=== PATIENT | male | born 1970 | race Caucasian/White ===

== ENCOUNTER 2022-01-28 10:48 | Outpatient (REF) | payer OTHER, SELFPAY ==
--- NOTE | ~2022-01-28 | XR_ITS ---
EXAMINATION: XR CHEST CLINICAL INFORMATION: Shortness of breath. COMPARISON: None TECHNIQUE: 2 views of the chest were obtained. FINDINGS: No significant abnormality is noted involving the heart, lungs, mediastinum, bony thorax or soft tissues. XR/XR chest 2V IMPRESSION: Unremarkable examination.
[2022-01-28 13:52] LABS: MANUAL DIFF FLAG NO
[2022-01-28 14:03] LABS: Basophils Percent Auto 0.4 % (0-2); Eosinophils Absolute Auto 0.1 X10*3/uL (0.0-0.4); Eosinophils Percent Auto 1.6 % (0-4); Hematocrit 46.4 % (42.0-52.0); Hemoglobin 15.8 g/dl (14.0-18.0); Imm Gran Abs Auto 0.03 X10*3/uL (0.00-0.03); Imm Gran Pct Auto 0.4 % (0.0-0.4); Lymphocytes Absolute Auto 1.9 X10*3/uL (1.2-4.9); Lymphocytes Percent Auto 27.5 % (20-40); Mean Corpuscular HGB Conc 34.1 g/dl (31.0-36.0); Mean Corpuscular Hemoglobin 32.1 pg (27.0-33.0); Mean Corpuscular Volume 94.3 fL (80.0-98.0); Mean Platelet Volume 10.1 fL (9.4-12.4); Monocytes Absolute Auto 0.6 X10*3/uL (0.1-1.2); Monocytes Percent Auto 8.2 % (2-11); Neutrophils Absolute Auto 4.3 x10*3/uL (2.0-8.3); Neutrophils Percent Auto 61.9 % (45-73); Platelet Count 219 X10*3/uL (160-400); Red Blood Count 4.92 X10*6/uL (4.60-5.80); Red Cell Distribution Width 12.7 % (11.0-16.0)
[2022-01-28 14:22] LABS: Alanine Aminotransferase 21 U/L (0-40); Albumin Level 4.5 g/dL (3.5-5.0); Alkaline Phosphatase 52 U/L (39-117); Anion Gap 15 (12-20); Aspartate Amino Transferase 20 U/L (5-37); Bilirubin Total 0.6 mg/dL (0.0-1.0); Blood Urea Nitrogen 17 mg/dL (9-16); Calcium 9.6 mg/dL (8.4-10.2); Carbon Dioxide 28 mmol/L (22-29); Chloride 103 mmol/L (96-108); Cholesterol 233 mg/dL; Estimated Glomerular Filt Rate > 60; Glucose Fasting 101 mg/dL (60-99); HDL Cholesterol 59 mg/dL; LDL Cholesterol Calculated 155 mg/dl; Potassium 4.7 mmol/L (3.3-5.1); Sodium 141 mmol/L (135-145); Total Protein 7.2 g/dL (6.5-8.0); Triglycerides 97 mg/dL
[2022-01-28 14:28] LABS: Appearance Urine Clear; Color Urine Yellow; Glucose Urine UA Negative (Negative); Leukocyte Esterase Urine Negative (Negative); Nitrite Urine Negative (Negative); PH 8.5 (5.0-9.0); Urine Blood Negative (Negative); Urine Ketones Negative (Negative); Urine Protein Negative (Neg-Trace)
[2022-01-28 14:32] LABS: Bacteria Urine None Seen (None Seen); Hyaline Casts Urine 0-2 /LPF (0-2); RBC Urine 0-2 /HPF (0-2); Squamous Epithelial Cell Urine 0-2 /HPF (0-2); WBC Urine 0-5 /HPF (0-5)
[2022-01-28 14:43] LABS: PSA,Total (Free>4and<10) 1.17 ng/mL (0.00-4.00)
== END 2022-01-28 10:49 | disposition home or self-care (01) ==
LOC: HO.HMGCX 10:48
PROVIDERS: PCP Internal Medicine; Visit Provider Internal Medicine
DX: Z12.5 Encounter for screening for malignant neoplasm of prostate (principal); Z00.00 Encounter for general adult medical examination without abnormal findings; K62.5 Hemorrhage of anus and rectum; K64.9 Unspecified hemorrhoids
CPT/HCPCS: 36415; 71046; 80053; 80061; 81001; 84153; 85025

== ENCOUNTER → 2022-02-18 09:30 | Outpatient (REF) | payer OTHER, SELFPAY ==
--- NOTE | 2022-02-18 09:33 | CA_ITS ---
Transthoracic Echocardiogram Patient (Last, First, Middle): Tristin Zhou, Gender: Male Date of : 1970 Age: 51 Procedure Date: 02/18/2022 Procedure Type: Transthoracic Echocardiogram Location: OP Height: 167. cm Weight: 84. 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 The calculated ejection fraction is 57% by biplane method. - No obvious valvular pathology seen on this study. Findings Left Ventricle Normal left ventricular cavity size. There is normal left ventricular wall thickness. The left ventricular systolic function is normal. The calculated ejection fraction is 57% by biplane method. There is no evidence of regional wall motion abnormalities. LV peak GLS -16.2%, mildly diminished. Right Ventricle Normal right ventricular cavity size and systolic function. Atria Both atria are normal in size. Aortic Valve There is a normal trileaflet aortic valve. There is no aortic valve stenosis. There is no aortic valve regurgitation. Mitral Valve The mitral valve appears normal. There is trace mitral valve regurgitation. There is no mitral valve stenosis. Pulmonic Valve The pulmonic valve is likely normal. Tricuspid Valve Normal tricuspid valve structure. There is trace tricuspid valve regurgitation. There is no evidence of pulmonary hypertension. Great Vessels The aortic annulus, sinuses of valsalva, and asc aorta are normal in size. Venous The inferior vena cava is normal in size and collapses less than 50% with inspiration. Pericardium/Pleural There is no evidence of pericardial effusion. Prior Study Comparison No prior study available for comparison. Recommendations, Care & Conclusions No obvious valvular pathology seen on this study. Measurements 2D Linear Measurements IVSd: 1.03 0.6-0.9/0.6-1.0 cm LVIDd: 5.46 3.9-5.3/4.2-5.9 cm LVIDd Index: 2.83 2.4-3.2/2.2-3.1 cm/m2 LVIDs: 3.86 2.0-3.6 cm LVPWd: 0.88 0.7-1.1 cm LA Diam: 3.70 2.7-3.8/3.0-4.0 cm LAIDs Index: 1.92 1.5-2.3 cm/m2 LV Mass: 246.88 67-162/88-224 g LV Mass Index: 127.92 43-95/49-115 g/m2 LVOT Diam: 2.20 3.0+(-)1.3 cm 2D Systolic Function EF 4C: 56.80 >55% EF 2C: 61.60 >55% EF BiP: 57.30 >55% Mitral Valve MV Pk E: 0.95 MV PK A: 1.02 MV Decel Time: 147.00 E/A: 0.90 E'Lateral: 7.18 E'Medial: 8.81 E/E' Med: 10.70 E/E' Lat: 13.20 PHT: 43.00 MVA PHT: 5.12 Decel [place]: 6.43 Aortic Valve AoV Pk Aaron: 1.33 AoV Mn [place]: 0.96 AoV VTI: 0.28 AoV Pk Grad: 7.00 Aov Mn Grad: 4.00 ARIEL Cont.VTI: 2.77 LVOT LVOT Pk Aaron: 0.92 LVOT Mn Aaron: 0.66 LVOT VTI: 0.21 LVOT Pk Grad: 3.00 LVOT Mn Grad: 2.00 LVOT Diam: 2.20 LVOT Area: 3.80 Diastolic Function MV Pk E: 0.95 MV Pk A: 1.02 E/A: 0.90 E'Medial: 8.81 E/E' Med: 10.70 E' Laterial: 7.18 E/E' Lat: 13.20 Right Ventricle TAPSE (mm): 19.10 TVS' Aaron: 11.30 Tricuspid Valve TR Pk Aaron: 2.34 TR Pk Grad: 22.00 RA Press: 8.00 RVSP: 25.00 Great Vessels Aorta Sinus of Valsalva: 2.90 2.0-3.5 cm Ao Asc: 3.30 2.1-3.4 cm Pulmonary Veins Pulm Vein S/D 1.30 Pulmonary Valve PV Pk Aaron: 0.90 Peak PV Grad: 3.00 Updated in Other Vendor System with Status of Final Jeffrey Hull MD electronically signed on 02/20/2022 11:22:27 AM with status of Final
== END ==
LOC: HO.CARD 09:30
PROVIDERS: Visit Provider Internal Medicine
DX: I51.7 Cardiomegaly (principal)
CPT/HCPCS: 93306; 93356

== ENCOUNTER 2022-02-25 15:59 | Outpatient (REF) | payer OTHER, SELFPAY ==
[2022-02-26 12:20] LABS: H Pylori Breath Test Negative (Negative)
== END 2022-02-25 16:00 | disposition home or self-care (01) ==
LOC: HO.LNP 15:59
PROVIDERS: Visit Provider Nurse Practitioner Family
DX: K64.9 Unspecified hemorrhoids (principal); K21.9 Gastro-esophageal reflux disease without esophagitis; K62.5 Hemorrhage of anus and rectum
CPT/HCPCS: 83013; 99202

== ENCOUNTER 2022-05-10 07:45 | Outpatient (REF) | payer MEDICAID, SELFPAY ==
[2022-05-10 11:48] LABS: Alanine Aminotransferase 17 U/L (0-40); Albumin Level 4.3 g/dL (3.5-5.0); Alkaline Phosphatase 50 U/L (39-117); Anion Gap 11 (12-20); Aspartate Amino Transferase 18 U/L (5-37); Bilirubin Total 0.3 mg/dL (0.0-1.0); Blood Urea Nitrogen 20 mg/dL (9-16); Calcium 8.9 mg/dL (8.4-10.2); Carbon Dioxide 27 mmol/L (22-29); Chloride 107 mmol/L (96-108); Cholesterol 229 mg/dL; Estimated Glomerular Filt Rate > 60; Glucose Fasting 111 mg/dL (60-99); HDL Cholesterol 61 mg/dL; LDL Cholesterol Calculated 152 mg/dl; Potassium 4.1 mmol/L (3.3-5.1); Sodium 141 mmol/L (135-145); Total Protein 6.9 g/dL (6.5-8.0); Triglycerides 82 mg/dL
== END 2022-05-10 07:46 | disposition home or self-care (01) ==
LOC: HO.HMGCLDS 07:45
PROVIDERS: PCP Internal Medicine; Visit Provider Internal Medicine
DX: I10 Essential (primary) hypertension (principal); E78.5 Hyperlipidemia, unspecified
CPT/HCPCS: 36415; 80053; 80061

== ENCOUNTER → 2022-06-01 15:48 | Outpatient (REF) | payer OTHER, SELFPAY | LOC: HO.SL 15:48 | PROVIDERS: PCP Internal Medicine; Visit Provider Internal Medicine | DX: G47.33 Obstructive sleep apnea (adult) (pediatric) (principal) | CPT/HCPCS: 95806 ==

== ENCOUNTER 2022-06-20 10:19 | Day surgery (SDC) | payer OTHER, SELFPAY ==
[2022-06-20 10:43] VITALS: BMI 30.7
[2022-06-20] MEDS: Lactated Ringers 1,000 ML 50 ML IVCONT (10:47)
[2022-06-20 10:56] VITALS: BP 133/92; PULSE 84; RESP 18; TEMP 36.6; O2SAT 98
--- NOTE | 2022-06-20 11:00 | MHC.SHP ---
Pre-Procedural Eval Section A Date of Service: 06/20/22 Section B Chief Complaint: GERD, screening Details of Present Illness: 52y.o M with PMH of HTN who is here for EGD/colo. Does report intermittent rectal bleeding which he thinks is from hemorrhoids Relevant Family History (Specify if Yes): No Relevant Social History: None Present Medications: see Short Stay Collaborative assessment Medical History: Significant History (as above ) History of Previous Operations: Relevant previous surgery/procedure and date(s) (Bone transplant status History of hernia surgery) Allergies: Allergies Allergy/AdvReac Type Severity Reaction Status Date / Time No Known Allergies Allergy Verified 06/16/22 08:57 Review of Systems Review of Systems Comment: 10 point ROS negative except as above Exam Exam Comment: Gen appear: No acute distress, well nourished HEENT: no icterus Chest: No overt resp distress Abd: soft, nontender, nondistended Psych: Stable affect, answering questions appropriately Neuro: A/Ox3 noted to move all extremities spontaneously Ext: no peripheral edema Plan Diagnosis/Plan: Unchanged I have reviewed the history and physical and performed a pertinent physical examination on my patient. No changes have occurred unless specified. Time Spent With Patient Time: Total time managing care of this patient today ____ minutes.
--- NOTE | 2022-06-20 11:14 | P.OP_ITS ---
Operative Note Operative Note Date of Service: 06/20/22 Narrative: Procedure:?Esophagogastroduodenoscopy and Colonoscopy Indication:GERD, screening Endoscopist:?Jazz Noonan MD Anesthesia Provider:?Dr Jessica Harrison Anesthesia type:?MAC Instrument:?Olympus GIF-H190, PCF-H190L EGD Procedure:?? The procedure, indications, preparation and potential complications were reviewed with the patient, who indicated understanding and gave written informed consent to proceed. A physical exam was performed. The endoscope was introduced through the mouth, and advanced to the duodenum. The mucosa was carefully examined on slow withdrawal of the endoscope. The patient tolerated the procedure well. There were no immediate complications.? ? EGD Findings:? * Esophagus: Normal mucosa noted in the entire esophagus. The Z line was at?40 cm and noted to be irregular with the columnar mucosa extending up to 39 cm. Cold forceps biopsies were taken to rule out Steele's esophagus. A small patch of heterotopic gastric mucosa was noted in the proximal esophagus. * Stomach: Patchy erythema and erosions were noted in the antrum. Random cold forceps biopsies were obtained to r/o H pylori. * Duodenum: Normal duodenum to the extent visualised. Cold forceps biopies were obtained from duodenal bulb and second portion of the duodenum to rule out celiac sprue. Colonoscopy Procedure:? The patient was then turned for the colonoscopy. A digital rectal exam was performed which was abnormal due to findings of external hemorrhoids. The colonoscope was then inserted through the anus and advanced through the colon to the cecum at 80 cm. The appendiceal orifice was identified.? Mucosa was examined under high definition white light as the instrument was slowly withdrawn in a retrograde panoramic fashion. Retroflexion could not be performed in ascending colon and rectum. The procedure was not difficult. There were no immediate obvious complications. The quality of the prep was BBPS: 2+2+3 = inadequate Withdrawal time 55 minutes. Limitations: No limitations Colonoscopy Findings: Mucosa: Normal mucosa in whole colon to the extent visualised Protruding lesions: * A flat polyp of size 2.5 cm spanning across the fold was noted in transverse colon at 60 cm. This was raised with 2 cc of epinephrine followed by 3 cc of Eleview. Due to difficult positioning of scope, the colonoscope was withdrawn and fitted with distal attachment cap. The polyp was then completely removed in one piece using hot snare polypectomy and retrieved. An endoclip was placed prophylactically at the polypectomy site. The site was flanked with 2 cc of Endomark 5-7 cm proximal and distal to the polyp site. * A sessile polyp of size 4 mm was noted in sigmoid colon. Cold snare polypectomy was performed. The polyp was completely removed and retrieved. * Large internal and external hemorrhoids without stigmata of recent bleeding Excavated lesions: * Small and medium mouthed diverticula in left side of the colon. Impression:? * Iregular Z line (biopsy) * Inlet patch * Gastritis (biopsy) * Normal duodenum (biopsy) * Large 2.5 cm polyp in transverse colon (EMR with epi/Eleview and hot snare) (endoclip) (tattoo) * Sigmoid colon polyp (cold snare polypectomy) * Diverticulosis * Internal hemorrhoids Recommendations:?? * Follow path results. * Repeat colonoscopy in 6 months if it is an advanced polyp. * If biopsies confirm BE, repeat EGD will depend on presence and extent of dysplasia.
[2022-06-20 12:50] VITALS: BP 100/58; PULSE 90; RESP 12; TEMP 36.6; O2SAT 96
[2022-06-20 13:05] VITALS: BP 130/90; PULSE 87; RESP 18; TEMP 36.1; O2SAT 99
== END 2022-06-20 13:29 | disposition home or self-care (01) ==
PROVIDERS: PCP Internal Medicine; Visit Provider Internal Medicine
PROC: (CPT 45385; principal; 2022-06-20 12:10)
DX: Z12.11 Encounter for screening for malignant neoplasm of colon (principal); D12.3 Benign neoplasm of transverse colon; K63.5 Polyp of colon; K57.30 Diverticulosis of large intestine without perforation or abscess without bleeding; K64.8 Other hemorrhoids; K64.4 Residual hemorrhoidal skin tags; K21.9 Gastro-esophageal reflux disease without esophagitis; K29.50 Unspecified chronic gastritis without bleeding; K22.89 Other specified disease of esophagus; Q39.8 Other congenital malformations of esophagus; I10 Essential (primary) hypertension; Z79.899 Other long term (current) drug therapy; Z94.6 Bone transplant status; F17.210 Nicotine dependence, cigarettes, uncomplicated
CPT/HCPCS: 45385; 45381; 43239; 88305; 88342; J0171

== ENCOUNTER 2022-06-21 15:02 | Outpatient (REF) | payer OTHER, SELFPAY ==
[2022-06-21 15:20] LABS: Hematocrit 33.4 % (42.0-52.0); Hemoglobin 11.3 g/dl (14.0-18.0); Mean Corpuscular HGB Conc 33.8 g/dl (31.0-36.0); Mean Corpuscular Hemoglobin 31.2 pg (27.0-33.0); Mean Corpuscular Volume 92.3 fL (80.0-98.0); Mean Platelet Volume 9.5 fL (9.4-12.4); Platelet Count 199 X10*3/uL (160-400); Red Blood Count 3.62 X10*6/uL (4.60-5.80)
[2022-06-21 15:59] LABS: Alanine Aminotransferase 27 U/L (0-40); Albumin Level 3.8 g/dL (3.5-5.0); Alkaline Phosphatase 49 U/L (39-117); Anion Gap 12 (12-20); Aspartate Amino Transferase 18 U/L (5-37); Bilirubin Total 0.2 mg/dL (0.0-1.0); Blood Urea Nitrogen 19 mg/dL (9-16); Calcium 8.6 mg/dL (8.4-10.2); Carbon Dioxide 27 mmol/L (22-29); Chloride 104 mmol/L (96-108); Cholesterol 163 mg/dL; Estimated Average Glucose 100 mg/dL; Estimated Glomerular Filt Rate > 60; Glucose Fasting 191 mg/dL (60-99); HDL Cholesterol 34 mg/dL; Hemoglobin A1c % 5.1 %; LDL Cholesterol Calculated 102 mg/dl; Potassium 4.1 mmol/L (3.3-5.1); Sodium 139 mmol/L (135-145); Total Protein 5.6 g/dL (6.5-8.0); Triglycerides 139 mg/dL
== END 2022-06-21 15:03 | disposition home or self-care (01) ==
LOC: HO.LAB 15:02
PROVIDERS: PCP Internal Medicine; Visit Provider Internal Medicine
DX: E78.5 Hyperlipidemia, unspecified (principal); R73.9 Hyperglycemia, unspecified; K62.5 Hemorrhage of anus and rectum; I10 Essential (primary) hypertension
CPT/HCPCS: 36415; 80053; 80061; 83036; 85027

== ENCOUNTER 2022-07-04 11:53 | Outpatient (REF) | payer OTHER, SELFPAY ==
[2022-07-04 14:30] LABS: Hematocrit 33.7 % (42.0-52.0); Hemoglobin 11.4 g/dl (14.0-18.0); Mean Corpuscular HGB Conc 33.8 g/dl (31.0-36.0); Mean Corpuscular Hemoglobin 32.1 pg (27.0-33.0); Mean Corpuscular Volume 94.9 fL (80.0-98.0); Platelet Count 279 X10*3/uL (160-400); Red Blood Count 3.55 X10*6/uL (4.60-5.80); Red Cell Distribution Width 12.7 % (11.0-16.0)
== END 2022-07-04 11:54 | disposition home or self-care (01) ==
LOC: HO.XRAY 11:53
PROVIDERS: PCP Internal Medicine; Referring Provider Internal Medicine; Visit Provider Nurse Practitioner Family
DX: K21.9 Gastro-esophageal reflux disease without esophagitis (principal); K62.5 Hemorrhage of anus and rectum; K63.5 Polyp of colon; Z98.890 Other specified postprocedural states
CPT/HCPCS: 36415; 85027; 99212

== ENCOUNTER 2022-08-16 08:01 | Outpatient (REF) | payer OTHER, SELFPAY ==
[2022-08-16 12:09] LABS: Anion Gap 8 (12-20); Blood Urea Nitrogen 21 mg/dL (9-16); Carbon Dioxide 29 mmol/L (22-29); Chloride 107 mmol/L (96-108); Estimated Glomerular Filt Rate > 60; Glucose Fasting 114 mg/dL (60-99); Potassium 4.4 mmol/L (3.3-5.1); Sodium 140 mmol/L (135-145)
== END 2022-08-16 08:02 | disposition home or self-care (01) ==
LOC: HO.HMGCLDS 08:01
PROVIDERS: PCP Internal Medicine; Visit Provider Internal Medicine
DX: R73.9 Hyperglycemia, unspecified (principal)
CPT/HCPCS: 36415; 80048

== ENCOUNTER → 2022-09-20 16:05 | Outpatient (BNVA) | payer OTHER, SELFPAY | PROVIDERS: PCP Internal Medicine; Visit Provider Nurse Practitioner Family | DX: Z12.11 Encounter for screening for malignant neoplasm of colon (principal); K64.9 Unspecified hemorrhoids; K59.00 Constipation, unspecified | CPT/HCPCS: 99212 ==

== ENCOUNTER 2023-02-02 08:02 | Outpatient (AMB) | payer OTHER, SELFPAY ==
[2023-02-02 08:05] VITALS: BP 120/74; PULSE 97; O2SAT 98; BMI 31.8
--- NOTE | 2023-02-02 08:05 | A.OFFPC_ITS ---
Vital Signs 02/02/23 08:05 Height 5 ft 6 in Weight 197 lb BMI 31.8 BP 120/74 Blood Pressure Location Lt brachial Position Sitting Pulse 97 Pulse Source Pulse Oximeter Pulse Oximetry (%) 98 Oxygen Delivery Method Room Air Intake Visit Reasons: PE Intake Note: Pt is here today for PE. Allergies No Known Allergies Allergy (Verified 02/02/23 08:07) Medication List - Last Reconciled 02/02/23 by Virginia Soares MD amlodipine 5 mg PO DAILY bisacodyl (Dulcolax (bisacodyl)) 10 mg (2 x 5 mg) PO ONCE 1 day blood sugar diagnostic (DaojiaTouch Ultra Test strips) qd blood-glucose meter (DaojiaTouch Ultra2 Meter kit) qd docusate sodium 100 mg PO BEDTIME hydrocortisone 2.5% (Proctosol HC) [address] BID-QID PRN nicotine 1 patch transdermal DAILY olmesartan-hydrochlorothiazide 40-12.5 mg 1 tab PO DAILY polyethylene glycol 3350 (Miralax) 238 grams PO ONCE pravastatin 20 mg PO BEDTIME triamcinolone acetonide 0.1% 1 appl topical BID Tobacco use date assessed: 02/02/23 Dental Screening Dental Screen Date: 02/02/23 Did you have a dental visit in the last 12 months?: Yes Did you have a dental problem in the last 6 months where you did not have access to dental care?: No Was dental information given to patient?: Patient has dentist HPI PE HPI Details Patient presents for physical. He will have a colonoscopy next month [facility] Surgical History History of esophagogastroduodenoscopy (EGD) Hx of colonoscopy History of hernia surgery Family History Father No problems noted. 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 Rik Floyd, Akosua Del Angel, Jonathan Walden and colleagues, with an educational rei from [employer]. Review of Systems Const All systems reviewed & are unremarkable except as noted in HPI and below Reports no additional complaints Eyes Reports no additional complaints ENT Reports no additional complaints Card Reports no additional complaints Resp Reports no additional complaints GI Reports no additional complaints Reports no additional complaints Musc Reports no additional complaints Physical exam (Primary Care) Vital Signs: Last Vital Signs Pulse 97 02/02/23 08:05 BP 120/74 02/02/23 08:05 Pulse Ox 98 02/02/23 08:05 Oxygen Delivery Method Room Air 02/02/23 08:05 BMI result Body Mass Index 31.8 Tobacco/Smoking Status: Tobacco use Status Tobacco use date assessed 02/02/23 02/02/23 08:10 Patient Tobacco Use Status Former Tobacco user 02/02/23 08:10 Tobacco use type Cigarette 02/02/23 08:10 e-Cigarette/Vaping Use Never Used 02/02/23 08:10 Thrive Assessment: Date of Thrive Assessment Date Thrive assessed 05/11/22 02/02/23 08:10 Const General: no acute distress HENMT Head: Yes normal to inspection Ears: hearing grossly normal bilaterally General nose exam: Normal external nose present Mouth: Normal oral and palatal mucosa present Throat: Yes posterior oropharynx normal Eyes General: appearance normal, both eyes and all related structures Resp Effort & Inspection: normal respiratory effort Auscultation: clear to auscultation bilaterally Cardio Rhythm: regular rhythm Heart sounds: S1 normal heart sound present and S2 normal heart sound present GI Inspection: Yes normal to inspection Palpation (GI): Soft to palpation Percussion: Yes normal to percussion Auscultation: normal bowel sounds Assessment and Plan Assessment & Plan (1) Hyperglycemia: Code(s): R73.9 - Hyperglycemia, unspecified Plan: A1c is 5.8. ADA diet regular physical activity weight loss discussed with the patient. He will return for fasting labs next week and will follow-up in 6 months with a fasting labs before (2) Hyperlipidemia: Code(s): E78.5 - Hyperlipidemia, unspecified Plan: Continue statin (3) Tobacco dependence: Comment: 1/2 PPD X 20 yrs Code(s): F17.200 - Nicotine dependence, unspecified, uncomplicated Plan: Tobacco quitting discussed with the patient (4) HTN (hypertension): Code(s): I10 - Essential (primary) hypertension Plan: Continue current medications, (5) Annual physical exam: Code(s): Z00.00 - Encounter for general adult medical examination without abnormal findings Plan: Well-balanced diet regular physical activity discussed with the patient. he will have a colonoscopy next month Medications: Refilled olmesartan-hydrochlorothiazide 40-12.5 mg 1 tab PO DAILY 90 tabs 3RF nicotine 1 patch transdermal DAILY 28 ea 3RF amlodipine 5 mg PO DAILY 90 tabs 3RF pravastatin 20 mg PO BEDTIME 90 tabs 3RF Coding Level of Care Code Est Pt Prev Care 40-64y(81281) Diagnoses Hyperglycemia R73.9 Hyperlipidemia E78.5 Tobacco dependence F17.200 HTN (hypertension) I10 Annual physical exam Z00.00
== END 2023-02-02 08:32 | disposition home or self-care (01) ==
PROVIDERS: Visit Provider Internal Medicine
DX: R73.9 Hyperglycemia, unspecified (principal); E78.5 Hyperlipidemia, unspecified; F17.200 Nicotine dependence, unspecified, uncomplicated; I10 Essential (primary) hypertension; Z00.00 Encounter for general adult medical examination without abnormal findings
CPT/HCPCS: 99396

== ENCOUNTER 2023-08-02 07:42 | Outpatient (REF) | payer OTHER, SELFPAY ==
[2023-08-02 10:17] LABS: MANUAL DIFF FLAG NO
[2023-08-02 10:21] LABS: Appearance Urine Hazy; Color Urine Yellow; Glucose Urine UA Negative (Negative); Leukocyte Esterase Urine Negative (Negative); Nitrite Urine Negative (Negative); PH 5.5 (5.0-9.0); Specific Gravity - Urine >= 1.030 (1.005-1.025); Urine Blood Negative (Negative); Urine Ketones Negative (Negative); Urine Protein Negative (Neg-Trace)
[2023-08-02 10:24] LABS: Basophils Percent Auto 0.6 % (0-2); Eosinophils Absolute Auto 0.2 X10*3/uL (0.0-0.4); Eosinophils Percent Auto 3.8 % (0-4); Hematocrit 41.6 % (42.0-52.0); Hemoglobin 14.2 g/dl (14.0-18.0); Imm Gran Abs Auto 0.02 X10*3/uL (0.00-0.03); Imm Gran Pct Auto 0.3 % (0.0-0.4); Lymphocytes Absolute Auto 1.8 X10*3/uL (1.2-4.9); Lymphocytes Percent Auto 28.5 % (20-40); Mean Corpuscular HGB Conc 34.1 g/dl (31.0-36.0); Mean Corpuscular Hemoglobin 32.3 pg (27.0-33.0); Mean Corpuscular Volume 94.5 fL (80.0-98.0); Monocytes Absolute Auto 0.5 X10*3/uL (0.1-1.2); Monocytes Percent Auto 8.5 % (2-11); Neutrophils Absolute Auto 3.7 x10*3/uL (2.0-8.3); Neutrophils Percent Auto 58.3 % (45-73); Platelet Count 226 X10*3/uL (160-400); Red Cell Distribution Width 12.7 % (11.0-16.0); White Blood Count 6.4 X10*3/uL (4.8-10.8)
[2023-08-02 10:49] LABS: Bacteria Urine None Seen (None Seen); Hyaline Casts Urine 0-2 /LPF (0-2); RBC Urine 0-2 /HPF (0-2); Squamous Epithelial Cell Urine 0-2 /HPF (0-2); WBC Urine 0-5 /HPF (0-5)
[2023-08-02 11:00] LABS: Estimated Average Glucose 105 mg/dL; Hemoglobin A1c % 5.3 % (<6.0)
[2023-08-02 11:11] LABS: PSA,Total (Free>4and<10) 0.94 ng/mL (0.00-4.00)
[2023-08-02 11:15] LABS: Alanine Aminotransferase 35 U/L (0-40); Albumin Level 4.5 g/dL (3.5-5.0); Alkaline Phosphatase 58 U/L (39-117); Anion Gap 10 (12-20); Aspartate Amino Transferase 31 U/L (5-37); Bilirubin Total 0.2 mg/dL (0.0-1.0); Blood Urea Nitrogen 20 mg/dL (9-16); Calcium 9.2 mg/dL (8.4-10.2); Carbon Dioxide 27 mmol/L (22-29); Chloride 107 mmol/L (96-108); Cholesterol 184 mg/dL (<200); Estimated Glomerular Filt Rate > 60; Glucose Fasting 115 mg/dL (60-99); HDL Cholesterol 62 mg/dL (>40); LDL Cholesterol Calculated 109 mg/dL (<100); Potassium 4.2 mmol/L (3.3-5.1); Sodium 140 mmol/L (135-145); Total Protein 7.3 g/dL (6.5-8.0); Triglycerides 65 mg/dL (<150)
== END 2023-08-02 07:43 | disposition home or self-care (01) ==
LOC: HO.HMGCLDS 07:42
PROVIDERS: PCP Internal Medicine; Visit Provider Internal Medicine
DX: R73.9 Hyperglycemia, unspecified (principal); E78.5 Hyperlipidemia, unspecified; I10 Essential (primary) hypertension
CPT/HCPCS: 36415; 80053; 80061; 81001; 83036; 84153; 85025

== ENCOUNTER 2023-08-03 10:21 | Outpatient (AMB) | payer OTHER, SELFPAY ==
[2023-08-03 10:24] VITALS: BP 118/72; PULSE 82; O2SAT 95; BMI 31.1
--- NOTE | 2023-08-03 10:24 | MHC.PC.OV ---
Vital Signs 08/03/23 10:24 Height 5 ft 6 in Weight 193 lb BMI 31.1 BP 118/72 Blood Pressure Location Rt brachial Position Sitting Pulse 82 Pulse Source Pulse Oximeter Pulse Oximetry (%) 95 Oxygen Delivery Method Room Air Intake Visit Reasons: 6 month follow up Intake Note: Pt is here today for 6 months follow up visit. Allergies No Known Allergies Allergy (Verified 08/03/23 10:26) Medication List - Last Reconciled 08/03/23 by Virginia Soares MD amlodipine 5 mg PO DAILY bisacodyl (Dulcolax (bisacodyl)) 10 mg (2 x 5 mg) PO ONCE 1 day blood sugar diagnostic (Phasor SolutionsTouch Ultra Test strips) qd blood-glucose meter (Phasor SolutionsTouch Ultra2 Meter kit) qd docusate sodium 100 mg PO BEDTIME hydrocortisone 2.5% (Proctosol HC) 1 appl SD BID-QID PRN nicotine 1 patch transdermal DAILY olmesartan-hydrochlorothiazide 40-12.5 mg 1 tab PO DAILY polyethylene glycol 3350 (Miralax) 238 grams PO ONCE pravastatin 20 mg PO BEDTIME triamcinolone acetonide 0.1% 1 appl topical BID Tobacco use date assessed: 08/03/23 Dental Screening Dental Screen Date: 08/03/23 Did you have a dental visit in the last 12 months?: Yes Did you have a dental problem in the last 6 months where you did not have access to dental care?: No Was dental information given to patient?: Patient has dentist HPI 6 month follow up HPI Details Patient presents for the follow-up of hypertension hyperlipidemia, controlled on current medications. [facility] Surgical History (Updated 08/03/23 @ 11:14 by Virginia Soarse MD) History of esophagogastroduodenoscopy (EGD) Hx of colonoscopy History of hernia surgery Family History Father No problems noted. 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 1. Little interest or pleasure in doing things: not at all 2. Feeling down, depressed, or hopeless: not at all 3. Trouble falling or staying asleep, or sleeping too much: not at all 4. Feeling tired or having little energy: not at all 5. Poor appetite or overeating: not at all 6. Feeling bad about yourself - or that you are a failure or have let yourself or your family down: not at all 7. Trouble concentrating on things, such as reading the newspaper or watching television: not at all 8. Moving or speaking so slowly that other people could have noticed. Or the opposite - being so fidgety or restless that you have been moving around a lot more than usual: not at all 9. Thoughts that you would be better off or of hurting yourself in some way: not at all Total score: 0 Depression Screening Interpretation: Negative Depression Screening Done: Yes Source: Developed by Drs. Rik Floyd, Akosua Del Angel, Jonathan Walden and colleagues, with an educational rei from [employer]. Thrive Questionnaire Date Thrive assessed: 08/03/23 I am a: Patient What is your living situation today?: I have a steady place to live Within the past 12 months, did the food you bought not last and you didn't have the money to get more?: Never true Within the past 12 months, did you worry whether your food would run out before you got money to buy more?: Never true Do you have trouble paying for medicines?: No Do you have trouble getting transportation to medical appointments?: No Do you have trouble paying your heating and electricity bill?: No Do you have trouble taking care of your child, family member or friend?: No Do you have trouble with day-to-day activities such as bathing, preparing meals, shopping, managing finances, etc.?: No Are you currently unemployed and looking for a job?: No Are you interested in more education?: No Please select the resources that you would like help with: None Currently or been in a relationship where the following occur: no concerns reported THRIVE Score: 0 AUDIT C Alcohol Use Questionnaire (AUDIT-C) 1. How often do you have a drink containing alcohol?: Monthly or less 2. How many drinks containing alcohol do you have on a typical day when you are drinking?: 1 or 2 3. How often do you have six or more drinks on one occasion?: Never Total Score: 1 ANTONIO-7 AMB Questionnaire ANTONIO-7 Date ANTONIO - 7 assessed: 08/03/23 Feeling nervous, anxious, or on edge: 0 = Not at all Not being able to stop or control worryin = Not at all Worrying too much about different things: 0 = Not at all Trouble relaxin = Not at all Being so restless that it is hard to sit still: 0 = Not at all Becoming easily annoyed or irritable: 0 = Not at all Feeling afraid as if something awful might happen: 0 = Not at all Total ANTONIO-7 score (0-4 normal; 5-9 mild; 10-14 moderate; 15-21 severe): 0 Source: Developed by Drs. Rik Floyd, Akosua Del Angel, Jonathan Walden and colleagues, with an educational rei from [employer]. Review of Systems Const All systems reviewed & are unremarkable except as noted in HPI and below Reports no additional complaints Eyes Reports no additional complaints ENT Reports no additional complaints Card Reports no additional complaints Resp Reports no additional complaints GI Reports no additional complaints Reports no additional complaints Physical exam (Primary Care) Vital Signs: Last Vital Signs Pulse 82 08/03/23 10:24 BP 118/72 08/03/23 10:24 Pulse Ox 95 08/03/23 10:24 Oxygen Delivery Method Room Air 08/03/23 10:24 BMI result Body Mass Index 31.1 Tobacco/Smoking Status: Tobacco use Status Tobacco use date assessed 08/03/23 08/03/23 10:26 Patient Tobacco Use Status Former Tobacco user 08/03/23 10:26 Tobacco use type Cigarette 08/03/23 10:26 e-Cigarette/Vaping Use Never Used 08/03/23 10:26 PHQ-9: PHQ-9 Score PHQ-9: Total score 0 08/03/23 10:32 Depression Screening Interpretation: Negative Thrive Assessment: Date of Thrive Assessment Date Thrive assessed 08/03/23 08/03/23 10:32 Currently or been in a relationship where the following occur: no concerns reported Const General: no acute distress HENMT Head: Yes normal to inspection Ears: hearing grossly normal bilaterally Eyes General: appearance normal, both eyes and all related structures Neck Neck: Yes supple Resp Effort & Inspection: normal respiratory effort Auscultation: clear to auscultation bilaterally Cardio Rhythm: regular rhythm Heart sounds: S1 normal heart sound present and S2 normal heart sound present Assessment and Plan Assessment & Plan (1) Hyperglycemia: Code(s): R73.9 - Hyperglycemia, unspecified Plan: A1c 5.3, continue ADA diet regular exercise and weight loss follow-up in 6 months for physical with a fasting labs before (2) Hyperlipidemia: Code(s): E78.5 - Hyperlipidemia, unspecified Plan: Continue statin and low-cholesterol diet (3) HTN (hypertension): Code(s): I10 - Essential (primary) hypertension Plan: Continue current medications (4) Hx of colonoscopy: Comment: 06.20.22 [facility] [place] , 2.5 cm polyp sessile serrated in transverse colon, repeat colonoscopy scheduled for 09/28 Code(s): Z98.890 - Other specified postprocedural states Plan: Patient is scheduled for repeat colonoscopy for large colon polyp in September Orders: Orders Comprehensive Nash. Panel Fast 6 Months E78.5 - Hyperlipidemia, unspecified, I10 - Essential (primary) hypertension, R73.9 - Hyperglycemia, unspecified Lipid Panel 6 Months E78.5 - Hyperlipidemia, unspecified, I10 - Essential (primary) hypertension, R73.9 - Hyperglycemia, unspecified UA w Microscopic 6 Months E78.5 - Hyperlipidemia, unspecified, I10 - Essential (primary) hypertension, R73.9 - Hyperglycemia, unspecified Hemoglobin A1c 6 Months E78.5 - Hyperlipidemia, unspecified, I10 - Essential (primary) hypertension, R73.9 - Hyperglycemia, unspecified Complete Blood Count Auto Diff 6 Months E78.5 - Hyperlipidemia, unspecified, I10 - Essential (primary) hypertension, R73.9 - Hyperglycemia, unspecified Medications: Refilled olmesartan-hydrochlorothiazide 40-12.5 mg 1 tab PO DAILY 90 tabs 3RF pravastatin 20 mg PO BEDTIME 90 tabs 3RF amlodipine 5 mg PO DAILY 90 tabs 3RF Coding Level of Care Code Est Pt Level 4 (51886) Diagnoses Hyperglycemia R73.9 Hyperlipidemia E78.5 HTN (hypertension) I10 Hx of colonoscopy Z98.890
== END 2023-08-03 11:17 | disposition home or self-care (01) ==
PROVIDERS: PCP Internal Medicine; Visit Provider Internal Medicine
DX: R73.9 Hyperglycemia, unspecified (principal); E78.5 Hyperlipidemia, unspecified; I10 Essential (primary) hypertension; Z98.890 Other specified postprocedural states; F17.210 Nicotine dependence, cigarettes, uncomplicated
CPT/HCPCS: 99214

== ENCOUNTER 2023-09-29 11:44 | Day surgery (SDC) | payer OTHER, SELFPAY ==
--- NOTE | 2023-09-27 14:45 | HO.ANESPROP2 ---
Documented by User: Brissa Gomez NP 09/27/23 14:47 HPI - Anesthesia Eval Consult details Narrative: 53yo M for Colonoscopy PMF Active Problems Active Problems: All Active Problems History of esophagogastroduodenoscopy (EGD) (Acute) Hx of colonoscopy (Acute) Pruritus (Acute) Hyperglycemia (Acute) Right knee pain (Acute) Hyperlipidemia (Acute) Tobacco dependence (Acute) HTN (hypertension) (Acute) SOB (shortness of breath) (Acute) Rectal bleeding (Acute) Hemorrhoids (Acute) Annual physical exam (Acute) Past Medical History Medical History HTN (hypertension) Tobacco dependence Hyperlipidemia Family History Family History Father No problems noted. 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 Tobacco Use Status: Current everyday Tobacco user Tobacco use type: Cigarette Cigarettes Per Day: 6 e-Cigarette/Vaping Use: Never Used Use of substances other than those prescribed or required for medical reasons: No Are you DNR?: No Advance Directives: No Advance Directives Information Provided: Yes Current occupational status: employed Cognitive needs: No Hearing needs: No Vision needs: Yes Meds Allergies Allergy/AdvReac Type Severity Reaction Status Date / Time No Known Allergies Allergy Verified 08/03/23 10:26 Assessment and Plan Assessment Anesthesia Assessment: Chart Reviewed Documented by User: Inna Parks MD 09/29/23 14:11 PMFSH Past Medical History Medical History HTN (hypertension) Tobacco dependence Hyperlipidemia Family History Family History Father No problems noted. 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 Tobacco Use Status: Current everyday Tobacco user Tobacco use type: Cigarette Cigarettes Per Day: 6 e-Cigarette/Vaping Use: Never Used Use of substances other than those prescribed or required for medical reasons: No Are you DNR?: No Advance Directives: No Advance Directives Information Provided: Yes Current occupational status: employed Cognitive needs: No Hearing needs: No Vision needs: Yes Meds Allergies Allergy/AdvReac Type Severity Reaction Status Date / Time No Known Allergies Allergy Verified 08/03/23 10:26 Exam Airway Mallampati Class: II (caps) TM Dist: >3cm Neck ROM: Full Heart: rrr Lungs: cta Assessment and Plan Assessment Anesthesia Assessment: Anesthesia Plan Discussed Final Anesthetic Review Family History of Problems with Anesthesia: No History of Problems with Anesthesia: No NPO: Yes ASA Class: II Final Preanesthetic Review: No Changes in Pt Med Stat, Meds/Allgs Chart Reviewed and Consent Obtained/Reviewed Patient Risk: Low Procedure Risk: Low Anesthetic Plan Anesthetic Plan: MAC: Disposition: Standard PACU
[2023-09-29 13:15] VITALS: BMI 30.7
[2023-09-29 14:16] VITALS: BP 138/69; PULSE 72; RESP 16; TEMP 36.9; O2SAT 98
--- NOTE | 2023-09-29 14:18 | P.CONAN_ITS ---
FORMERLY [facility] Active Problems Active Problems: All Active Problems History of esophagogastroduodenoscopy (EGD) (Acute) Hx of colonoscopy (Acute) Pruritus (Acute) Hyperglycemia (Acute) Right knee pain (Acute) SOB (shortness of breath) (Acute) Rectal bleeding (Acute) Hemorrhoids (Acute) Annual physical exam (Acute) Past Medical History Medical History HTN (hypertension) Tobacco dependence Hyperlipidemia Functional capacity: independent ambulation Family History Family History Father No problems noted. 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 Tobacco Use Status: Current everyday Tobacco user Tobacco use type: Cigarette Cigarettes Per Day: 6 e-Cigarette/Vaping Use: Never Used Use of substances other than those prescribed or required for medical reasons: No Are you DNR?: No Advance Directives: No Advance Directives Information Provided: Yes Current occupational status: employed Cognitive needs: No Hearing needs: No Vision needs: Yes Meds Allergies Allergy/AdvReac Type Severity Reaction Status Date / Time No Known Allergies Allergy Verified 08/03/23 10:26 Active Medications: Current Medications Lactated Ringer's (Lr) 1,000 mls @ 100 mls/hr IVCONT .Q10H DAMIAN Exam Height,Weight and Vital Signs: Height 5 ft 6 in Weight 86.183 kg Last Vital Signs Temp 98.5 F 09/29/23 14:16 Pulse 72 09/29/23 14:16 Resp 16 09/29/23 14:16 BP 138/69 09/29/23 14:16 Pulse Ox 98 09/29/23 14:16 O2 Del Method Room Air 09/29/23 14:16 Airway Mallampati Class: II TM Dist: >3cm Neck ROM: Full Heart: RRR Lungs: CTA Assessment and Plan Assessment Anesthesia Assessment: Anesthesia Plan Discussed and Smoking Cess. Discussed Final Anesthetic Review Family History of Problems with Anesthesia: No History of Problems with Anesthesia: No ASA Class: II Final Preanesthetic Review: Meds/Allgs Chart Reviewed, Consent Obtained/Reviewed and Anes Risks/Benef Reviewed Patient Risk: Low Procedure Risk: Low Anesthetic Plan Anesthetic Plan: MAC: Disposition: Standard PACU
--- NOTE | 2023-09-29 14:27 | MHC.SHP ---
Pre-Procedural Eval Section A - 24 Hr Update-Section A only Date of Service: 09/29/23 Section B - Complete if H&P > 30 days Chief Complaint: Encounter for screening for malignant neoplasm of Details of Present Illness: History of esophagogastroduodenoscopy (EGD) History of hernia surgery Hx of colonoscopy Family History Father No problems noted. Mother Hypertension Stroke Allergies: Allergies Allergy/AdvReac Type Severity Reaction Status Date / Time No Known Allergies Allergy Verified 08/03/23 10:26 Review of Systems Review of Systems Comment: Ten point ROS negative Exam Exam Comment: Gen appear: No acute distress HEENT: no icterus Chest: No overt resp distress Abd: soft, nontender, nondistended Psych: Stable affect, answering questions appropriately Neuro: A/Ox3 noted to move all extremities spontaneously Ext: no peripheral edema Plan Diagnosis/Plan: Unchanged I have reviewed the history and physical and performed a pertinent physical examination on my patient. No changes have occurred unless specified. Time Spent With Patient Time: Total time managing care of this patient today ____ minutes.
--- NOTE | 2023-09-29 14:30 | P.OPN-COLO_ITS ---
Colonoscopy Operative Note Operative Note Date of Service: 09/29/23 Narrative: Procedure: Colonoscopy Indication: Personal history of polyps Endoscopist: Jazz Noonan MD Anesthesia Provider: Dr Inna Marcano Anesthesia type: MAC Instrument: Olympus [id number]-H190L Consent: Indication, risks vs benefits, and alternatives were discussed with the patient who gave written informed consent to proceed. An freelance interpreter/translator was utilized to assist with the consent. Monitoring: EKG, pulse, pulse oximetry and blood pressure were monitored throughout the procedure. Please see anesthesia flowsheet. Procedure: The patient was brought to the procedure room and placed in the left lateral decubitus position. IV medications were administered by the anesthesia provider in attendance. A digital rectal exam was performed which was normal. A distal attachment cap was affixed to the tip of the colonoscope which was then inserted through the anus and advanced through the colon to the cecum at 80 cm,and terminal ileum. Appendiceal orifice and ileocecal valve were identified. Mucosa was carefully examined under high definition white light as the instrument was slowly withdrawn in a retrograde panoramic fashion. Retroflexion was performed in rectum. The procedure was not difficult. There were no immediate obvious complications. The quality of the prep was BBPS: 2+2+2 = adequate Withdrawal time 15 minutes. Limitations: No limitations. Findings: Mucosa: Normal to cecum and terminal ileum. Tattoo sites were noted in distal transverse colon. No residual polyp was noted in the area of concern. Protruding lesions: * 1 sessile polyp of size 15 mm in proximal transverse colon. Hot snare polypectomy was performed. The polyp was completely removed and retrieved. * 1 sessile polyp of size 10 mm in distal transverse colon. Hot snare polypectomy was performed. The polyp was completely removed and retrieved. * 1 sessile polyp of size 6 mm in rectum. Cold snare polypectomy was performed. The polyp was completely removed and retrieved. * Medium internal hemorrhoids without stigmata of recent bleeding. Excavated lesions: * Moderate diverticulosis of left sided colon. Impression: 1. Normal colon and terminal ileum mucosa 2. Total of 3 polyps removed 3. Previous tattoo - no recurrent or residual polyp noted 4. Diverticulosis 5. Internal hemorrhoids Recommendations: - Follow path results. - Repeat colonoscopy in 1 year. - Can also consider an EGD at the same time for ?BE (see path note from 2022).
[2023-09-29 15:01] VITALS: BP 107/61; PULSE 82; RESP 16; TEMP 36.1; O2SAT 97
[2023-09-29 15:16] VITALS: BP 116/72; PULSE 69; RESP 18; TEMP 36.1; O2SAT 96
--- NOTE | 2023-09-29 15:24 | HO.POSTANES ---
Post Anesthesia Evaluation Post Anesthesia Evaluation Date of Service: 09/29/23 Vital Signs: Vital Signs Temp Pulse Resp BP Pulse Ox O2 Del Method 09/29/23 15:16 97.0 F 69 18 116/72 96 Room Air 09/29/23 15:01 97 F 82 16 107/61 97 Room Air 09/29/23 14:16 98.5 F 72 16 138/69 98 Room Air Anesthesia: Monitored Mental Status: Awake Pain Control: Satisfactory Nausea/Vomiting: None Hydration: Adequate Anesthesia-Related Issues: No Anes. Related Issues
== END 2023-09-29 15:51 | disposition home or self-care (01) ==
PROVIDERS: PCP Internal Medicine; Visit Provider Internal Medicine
PROC: 0DJD8ZZ Inspection of Lower Intestinal Tract, Via Natural or Artificial Opening Endoscopic (ICD-10-PCS; CPT 45378; principal; 2023-09-29 14:20)
DX: Z12.11 Encounter for screening for malignant neoplasm of colon (principal); D12.3 Benign neoplasm of transverse colon; K62.1 Rectal polyp; K57.30 Diverticulosis of large intestine without perforation or abscess without bleeding; K64.8 Other hemorrhoids; Z86.010 Personal history of colon polyps; I10 Essential (primary) hypertension; E78.5 Hyperlipidemia, unspecified; Z87.891 Personal history of nicotine dependence; Z79.02 Long term (current) use of antithrombotics/antiplatelets; Z79.899 Other long term (current) drug therapy
CPT/HCPCS: 45385; 88305; J2704

== ENCOUNTER → 2023-09-29 11:44 | Outpatient (BNV) | payer OTHER, SELFPAY | PROVIDERS: PCP Internal Medicine; Visit Provider Internal Medicine | DX: Z12.11 Encounter for screening for malignant neoplasm of colon (principal); Z86.010 Personal history of colon polyps; D12.3 Benign neoplasm of transverse colon; K62.1 Rectal polyp; K64.8 Other hemorrhoids; K57.30 Diverticulosis of large intestine without perforation or abscess without bleeding | CPT/HCPCS: 45385 ==

== ENCOUNTER 2023-10-05 16:20 | Outpatient (AMB) | payer OTHER, SELFPAY ==
--- NOTE | 2023-10-05 16:30 | A.OFFVIS_ITS ---
Vital Signs 10/05/23 16:34 Height 5 ft 6 in Weight 194 lb 14.218 oz BMI 31.5 BP 114/74 Blood Pressure Location Lt brachial Position Sitting Pulse 96 Pulse Source Pulse Oximeter Pulse Oximetry (%) 97 Oxygen Delivery Method Room Air Intake Visit Reasons: S/P [place]; Dr. Martínez Intake Note: Tristin reports to the office today for a FUV CC; Pt denies any specific concerns or present sx. Seismographer Required: No Allergies No Known Allergies Allergy (Verified 10/05/23 16:33) HPI HPI S/P [place]; Dr. Martínez: Details: LAST VISIT: Hemorrhoids Will send script for Proctosol. Patient had 1 episode of blood in his stool after straining. Will give patient script for Colace Screen for colon cancer Discussed with patient what to expect before during and after the procedure. [place] just had his colonoscopy 3 months ago and reports that he has no questions. Went over the prep. We will do MiraLax split prep. Patient will take 2 Dulcolax at noon and then half of the MiraLax prep at 17:00 and half at 22:00. Patient will call us if he will have any issues. Please book the procedure for January per patient's request. Patient will call us sooner if he will have any GI concer ns. He is agreeable to this plan and verbalizes understanding of instructions. He was given the opportunity to ask questions and all questions answered. ? Thank you for allowing me to participate in his care Plan Medications New docusate sodium 100 mg PO BEDTIME 90 caps 3RF K59.00 - Constipation, unspecified hydrocortisone 2.5% (Proctosol HC) 1 appl CA BID-QID PRN 30 grams 2RF hemorrhoids K64.9 - Unspecified hemorrhoids bisacodyl (Dulcolax (bisacodyl)) take 2 tabs at noon the day before your colonoscopy 10 mg (2 x 5 mg) PO ONCE 1 day 2 tabs 0RF Z12.11 - Encounter for screening for malignant neoplasm of colon polyethylene glycol 3350 (Miralax) As directed by gastroenterology department at [facility] 238 grams PO ONCE 238 grams 0RF Z12.11 - Encounter for screening for malignant neoplasm of colon COLONOSCOPY Findings: Mucosa: Normal to cecum and terminal ileum. Tattoo sites were noted in distal transverse colon. No residual polyp was noted in the area of concern. Protruding lesions: * 1 sessile polyp of size 15 mm in proximal transverse colon. Hot snare polypectomy was performed. The polyp was completely removed and retrieved. * 1 sessile polyp of size 10 mm in distal transverse colon. Hot snare polypectomy was performed. The polyp was completely removed and retrieved. * 1 sessile polyp of size 6 mm in rectum. Cold snare polypectomy was performed. The polyp was completely removed and retrieved. * Medium internal hemorrhoids without stigmata of recent bleeding. Excavated lesions: * Moderate diverticulosis of left sided colon. Impression: 1. Normal colon and terminal ileum mucosa 2. Total of 3 polyps removed 3. Previous tattoo - no recurrent or residual polyp noted 4. Diverticulosis 5. Internal hemorrhoids Recommendations: - Follow path results. - Repeat colonoscopy in 1 year. - Can also consider an EGD at the same time for ?BE (see path note from 2022). PATHOLOGY RESULTS Diagnosis A. Colon, transverse, polypectomy (#1): Fragments of sessile serrated lesion/polyp; negative for cytologic dysplasia. B. Colon, transverse, polypectomy (#2): Fragments of tubular adenoma; negative for high-grade dysplasia or carcinoma. C. Rectum, polypectomy: Hyperplastic mucosal polyp * TODAY'S VISIT Patient is here today for follow-up and to discuss colonoscopy results. Patient denies any ill effects from the prep, anesthesia or procedure. Colonoscopy endoscopy results discussed with patient. Patient reports that he has been doing well. Moving his bowels well without any issues. Patient denies any melena, hematochezia. Denies any dyspepsia, dysphagia or odynophagia. Occasional acid reflux depending on what he eats. Patient denies any GI concerning symptoms today [facility] Medical History HTN (hypertension) Tobacco dependence Hyperlipidemia Surgical History History of esophagogastroduodenoscopy (EGD) Hx of colonoscopy History of hernia surgery Family History Father No problems noted. 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 Tobacco Use Status: Current everyday Tobacco user Tobacco use type: Cigarette Cigarettes Per Day: 6 e-Cigarette/Vaping Use: Never Used Current occupational status: employed Cognitive needs: No Hearing needs: No Vision needs: Yes Review of Systems Const Denies weight gain and Denies weight loss ENT Reports no additional complaints, Denies dysphagia and Denies odynophagia Card Reports no additional complaints Resp Reports no additional complaints GI Denies abdominal pain, Denies belching, Denies melena, Denies bloating, Denies change in bowel habits, Denies dysphagia, Denies excessive flatus, Denies dyspepsia, Denies heartburn, Denies diarrhea, Denies loose stools, Denies nausea, Denies odynophagia and Denies vomiting Reports no additional complaints Musc Reports no additional complaints Neuro Reports no additional complaints Psych Reports no additional complaints Endo Reports no additional complaints Physical Exam Const General: healthy appearing and no acute distress Nutritional Appearance: obese Orientation/consciousness: patient oriented x3 Resp Effort & Inspection: normal respiratory effort, able to speak in complete sentences, no tracheal deviation and symmetric chest movement Auscultation: clear to auscultation bilaterally Cardio Rate: regular rate GI Inspection: Yes normal to inspection, No distended and Yes obesity Palpation (GI): Soft to palpation, not firm, nontender and No hepatosplenomegaly present Auscultation: normal bowel sounds General: Yes no CVA tenderness Back/Spine/Pelvis Back: no CVA tenderness Skin General skin exam: elasticity normal, turgor normal and dry skin Neuro General: patient oriented x3 Psych Appearance: grossly normal Mental Status: mental status grossly normal Assessment & Plan Assessment & Plan (1) Status post colonoscopy: Code(s): Z98.890 - Other specified postprocedural states (2) Tubular adenoma: Code(s): D36.9 - Benign neoplasm, unspecified site (3) 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 Patient will start taking pantoprazole 40 mg before breakfast. Patient is not on any PPI at this time. Diagnosed with possible Barretts although negative for intestinal dysplasia. Occasional acid reflux. Patient will be sent for upper endoscopy as well when he goes for his colonoscopy. He will call our office on as needed basis. He is agreeable to this plan and verbalizes understanding of instructions. He was given the opportunity to ask questions and all questions answered. 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
[2023-10-05 16:34] VITALS: BP 114/74; PULSE 96; O2SAT 97; BMI 31.5
== END 2023-10-05 16:58 | disposition home or self-care (01) ==
PROVIDERS: PCP Internal Medicine; Visit Provider Nurse Practitioner Family
DX: Z98.890 Other specified postprocedural states (principal); D36.9 Benign neoplasm, unspecified site; K22.70 Barrett's esophagus without dysplasia
CPT/HCPCS: 99213

== ENCOUNTER → 2023-10-05 16:20 | Outpatient (BNVA) | payer OTHER, SELFPAY | PROVIDERS: PCP Internal Medicine; Visit Provider Nurse Practitioner Family | DX: K22.70 Barrett's esophagus without dysplasia (principal); D36.9 Benign neoplasm, unspecified site; Z98.890 Other specified postprocedural states | CPT/HCPCS: 99212 ==

== ENCOUNTER 2024-01-23 10:05 | Outpatient (AMB) | payer OTHER, SELFPAY ==
[2024-01-23 10:13] VITALS: BP 124/78; PULSE 74; O2SAT 97; BMI 32.3
--- NOTE | 2024-01-23 10:13 | MHC.PC.OV ---
Vital Signs 01/23/24 10:13 Height 5 ft 6 in Weight 200 lb BMI 32.3 BP 124/78 Blood Pressure Location Rt brachial Position Sitting Pulse 74 Pulse Source Pulse Oximeter Pulse Oximetry (%) 97 Oxygen Delivery Method Room Air Intake Visit Reasons: LT hand swelling/month Intake Note: Pt is here today for a sick visit. Pt c/o pain and swelling in his L hand for a month. Pt states that he thinks it might be gout. Allergies No Known Allergies Allergy (Verified 01/23/24 10:14) Medication List - Last Reconciled 01/23/24 by Virginia Soares MD amlodipine 5 mg PO DAILY blood sugar diagnostic ([employer] Ultra Test strips) qd blood-glucose meter ([employer] Ultra2 Meter kit) qd olmesartan-hydrochlorothiazide 40-12.5 mg 1 tab PO DAILY pantoprazole 40 mg PO DAILY pravastatin 20 mg PO BEDTIME Tobacco use date assessed: 08/03/23 Dental Screening Dental Screen Date: 08/03/23 HPI LT hand swelling/month HPI Details Patient presents for the follow-up on hypertension hyperlipidemia. 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 [facility] Medical History HTN (hypertension) Tobacco dependence Hyperlipidemia Surgical History History of esophagogastroduodenoscopy (EGD) Hx of colonoscopy History of hernia surgery Family History Father No problems noted. 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 1. Little interest or pleasure in doing things: not at all 2. Feeling down, depressed, or hopeless: not at all 3. Trouble falling or staying asleep, or sleeping too much: not at all 4. Feeling tired or having little energy: not at all 5. Poor appetite or overeating: not at all 6. Feeling bad about yourself - or that you are a failure or have let yourself or your family down: not at all 7. Trouble concentrating on things, such as reading the newspaper or watching television: not at all 8. Moving or speaking so slowly that other people could have noticed. Or the opposite - being so fidgety or restless that you have been moving around a lot more than usual: not at all 9. Thoughts that you would be better off or of hurting yourself in some way: not at all Total score: 0 Depression Screening Interpretation: Negative Depression Screening Done: Yes 92197 - PHQ-9 Billing: Yes Source: Developed by Drs. Rik Floyd, Akosua Del Angel, Jonathan Walden and colleagues, with an educational rei from [employer]. Thrive Questionnaire Date Thrive assessed: 01/23/24 I am a: Patient What is your living situation today?: I have a steady place to live Within the past 12 months, did the food you bought not last and you didn't have the money to get more?: Never true Within the past 12 months, did you worry whether your food would run out before you got money to buy more?: Never true Do you have trouble paying for medicines?: No Do you have trouble getting transportation to medical appointments?: No Do you have trouble paying your heating and electricity bill?: No Do you have trouble taking care of your child, family member or friend?: No Do you have trouble with day-to-day activities such as bathing, preparing meals, shopping, managing finances, etc.?: No Are you currently unemployed and looking for a job?: No Are you interested in more education?: No Please select the resources that you would like help with: None Currently or been in a relationship where the following occur: No concerns reported THRIVE Score: 0 AUDIT C Alcohol Use Questionnaire (AUDIT-C) 1. How often do you have a drink containing alcohol?: 2-4 times a month 2. How many drinks containing alcohol do you have on a typical day when you are drinking?: 3 or 4 3. How often do you have six or more drinks on one occasion?: Never Total Score: 3 ANTONIO-7 AMB Questionnaire ANTONIO-7 Date ANTONIO - 7 assessed: 01/23/24 Feeling nervous, anxious, or on edge: 0 = Not at all Not being able to stop or control worryin = Not at all Worrying too much about different things: 0 = Not at all Trouble relaxin = Not at all Being so restless that it is hard to sit still: 0 = Not at all Becoming easily annoyed or irritable: 0 = Not at all Feeling afraid as if something awful might happen: 0 = Not at all Total ANTONIO-7 score (0-4 normal; 5-9 mild; 10-14 moderate; 15-21 severe): 0 Source: Developed by Drs. Rik Floyd, Akosua Del Angel, Jonathan Walden and colleagues, with an educational rei from [employer]. ANTONIO-7 Assessment Billing ANTONIO-7 Assessment Tool: ANTONIO-7 Assessment 46712 Review of Systems Const All systems reviewed & are unremarkable except as noted in HPI and below ENT Reports no additional complaints Card Reports no additional complaints Resp Reports no additional complaints GI Reports no additional complaints Reports no additional complaints Musc Reports no additional complaints Physical exam (Primary Care) Vital Signs: Last Vital Signs Pulse 74 01/23/24 10:13 BP 124/78 01/23/24 10:13 Pulse Ox 97 01/23/24 10:13 Oxygen Delivery Method Room Air 01/23/24 10:13 BMI result Body Mass Index 32.3 Tobacco/Smoking Status: Tobacco use Status Tobacco use date assessed 08/03/23 01/23/24 10:18 Patient Tobacco Use Status Current everyday Tobacco 01/23/24 10:18 Tobacco use type Cigarette 01/23/24 10:18 e-Cigarette/Vaping Use Never Used 01/23/24 10:18 PHQ-9: PHQ-9 Score PHQ-9: Total score 0 01/23/24 10:18 Depression Screening Interpretation: Negative Thrive Assessment: Date of Thrive Assessment Date Thrive assessed 01/23/24 01/23/24 10:18 Currently or been in a relationship where the following occur: No concerns reported Const General: no acute distress HENMT Face and sinus: Yes normal facial exam Eyes General: appearance normal, both eyes and all related structures Resp Effort & Inspection: normal respiratory effort Auscultation: clear to auscultation bilaterally Cardio Rhythm: regular rhythm Heart sounds: S1 normal heart sound present and S2 normal heart sound present GI Inspection: Yes normal to inspection Palpation (GI): Soft to palpation Percussion: Yes normal to percussion Auscultation: normal bowel sounds Extrem Other: L 3 rd MCP joint tenderness, DROM, no swelling Assessment and Plan Assessment & Plan (1) HTN (hypertension): Code(s): I10 - Essential (primary) hypertension Plan: cont meds (2) Hyperglycemia: Code(s): R73.9 - Hyperglycemia, unspecified Plan: ADA diet, increase exercise, check A1C (3) Hand pain, left: Comment: 3 MCP joint Code(s): M79.642 - Pain in left hand Plan: check XR, and try Meloxicam Orders: Orders Comprehensive [place]. Panel Fast Today I10 - Essential (primary) hypertension, M79.642 - Pain in left hand, R73.9 - Hyperglycemia, unspecified Uric Acid Today I10 - Essential (primary) hypertension, M79.642 - Pain in left hand, R73.9 - Hyperglycemia, unspecified Lipid Panel Today I10 - Essential (primary) hypertension, M79.642 - Pain in left hand, R73.9 - Hyperglycemia, unspecified Microalbumin, Random (w Creat) Today I10 - Essential (primary) hypertension, M79.642 - Pain in left hand, R73.9 - Hyperglycemia, unspecified Complete Blood Count Auto Diff Today I10 - Essential (primary) hypertension, M79.642 - Pain in left hand, R73.9 - Hyperglycemia, unspecified Hemoglobin A1c Today I10 - Essential (primary) hypertension, M79.642 - Pain in left hand, R73.9 - Hyperglycemia, unspecified XR hand LT min 3V Today M79.642 - Pain in left hand Medications: New meloxicam 15 mg PO DAILY 10 tabs 0RF Coding Level of Care Code Est Pt Level 4 (55187) Diagnoses HTN (hypertension) I10 Hyperglycemia R73.9 Hand pain, left M79.642 Additional Codes ANTONIO-7 Assessment Billing - ANTONIO-7 Assessment Tool: ANTONIO-7 Assessment 14652 ([id number])
== END 2024-01-23 11:03 | disposition home or self-care (01) ==
PROVIDERS: PCP Internal Medicine; Visit Provider Internal Medicine
DX: I10 Essential (primary) hypertension (principal); R73.9 Hyperglycemia, unspecified; M79.642 Pain in left hand

== ENCOUNTER → 2024-01-23 10:05 | Outpatient (BNVA) | payer OTHER, SELFPAY | PROVIDERS: PCP Internal Medicine; Visit Provider Internal Medicine ==

== ENCOUNTER 2024-01-23 10:44 | Outpatient (REF) | payer OTHER, SELFPAY ==
--- NOTE | ~2024-01-23 | XR_ITS ---
EXAMINATION: XR HAND, LEFT CLINICAL INFORMATION: M79.642 - Pain in left hand COMPARISON: None available. TECHNIQUE: PA, lateral, and oblique views of the left hand. Examination submitted for interpretation 04/02/2024. FINDINGS: No fracture, dislocation, or suspicious focal bony abnormality. 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 No erosions or focal regions of osteopenia. Joint spaces appear normal. Carpus appears normal. Normal-appearing soft tissues. XR/XR hand LT min 3V IMPRESSION: 1. No acute findings left hand. 2. 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 Electronically signed by: Len Herron MD 04/02/2024 12:06 PM PEE
[2024-01-23 13:38] LABS: MANUAL DIFF FLAG NO
[2024-01-23 13:51] LABS: Basophils Percent Auto 0.6 % (0-2); Eosinophils Absolute Auto 0.1 X10*3/uL (0.0-0.4); Eosinophils Percent Auto 1.4 % (0-4); Hematocrit 42.4 % (42.0-52.0); Hemoglobin 14.6 g/dl (14.0-18.0); Imm Gran Abs Auto 0.03 X10*3/uL (0.00-0.03); Imm Gran Pct Auto 0.4 % (0.0-0.4); Lymphocytes Absolute Auto 1.7 X10*3/uL (1.2-4.9); Lymphocytes Percent Auto 24.3 % (20-40); Mean Corpuscular HGB Conc 34.4 g/dl (31.0-36.0); Mean Corpuscular Hemoglobin 32.5 pg (27.0-33.0); Mean Corpuscular Volume 94.4 fL (80.0-98.0); Mean Platelet Volume 10.4 fL (9.4-12.4); Monocytes Absolute Auto 0.5 X10*3/uL (0.1-1.2); Monocytes Percent Auto 6.7 % (2-11); Neutrophils Absolute Auto 4.8 x10*3/uL (2.0-8.3); Neutrophils Percent Auto 66.6 % (45-73); Platelet Count 215 X10*3/uL (160-400); Red Blood Count 4.49 X10*6/uL (4.60-5.80); White Blood Count 7.2 X10*3/uL (4.8-10.8)
[2024-01-23 14:11] LABS: Estimated Average Glucose 105 mg/dL; Hemoglobin A1c % 5.3 % (<6.0)
[2024-01-23 14:35] LABS: Alanine Aminotransferase 26 U/L (0-40); Albumin Level 4.5 g/dL (3.5-5.0); Alkaline Phosphatase 56 U/L (39-117); Anion Gap 10 (12-20); Aspartate Amino Transferase 22 U/L (5-37); Bilirubin Total 0.5 mg/dL (0.0-1.0); Blood Urea Nitrogen 16 mg/dL (9-16); Calcium 9.8 mg/dL (8.4-10.2); Carbon Dioxide 28 mmol/L (22-29); Chloride 106 mmol/L (96-108); Cholesterol 187 mg/dL (<200); Estimated Glomerular Filt Rate > 60; Glucose Fasting 103 mg/dL (60-99); HDL Cholesterol 54 mg/dL (>40); LDL Cholesterol Calculated 114 mg/dL (<100); Potassium 4.1 mmol/L (3.3-5.1); Sodium 140 mmol/L (135-145); Total Protein 7.3 g/dL (6.5-8.0); Triglycerides 96 mg/dL (<150); Uric Acid 6.1 mg/dL (3.4-7.0)
[2024-01-23 14:45] LABS: Microalbumin Urine < 5.0 mg/L
== END 2024-01-23 10:45 | disposition home or self-care (01) ==
LOC: HO.HMGCX 10:44
PROVIDERS: PCP Internal Medicine; Visit Provider Internal Medicine
DX: M79.642 Pain in left hand (principal); R73.9 Hyperglycemia, unspecified; I10 Essential (primary) hypertension
CPT/HCPCS: 36415; 73130; 80053; 80061; 82043; 82570; 83036; 84550; 85025; 96127; 99212

== ENCOUNTER → 2024-01-23 10:49 | Outpatient (BNV) | payer OTHER, SELFPAY | PROVIDERS: PCP Internal Medicine; Visit Provider Radiology Diagnostic Radiology | DX: M79.642 Pain in left hand (principal); Z89.022 Acquired absence of left finger(s) | CPT/HCPCS: 73130 ==

== ENCOUNTER 2024-04-12 10:54 | Outpatient (AMB) | payer OTHER, SELFPAY ==
[2024-04-12 10:57] VITALS: BP 122/80; PULSE 80; O2SAT 98; BMI 32.1
--- NOTE | 2024-04-12 10:57 | MHC.PC.OV ---
Vital Signs 04/12/24 10:57 Height 5 ft 6 in Weight 199 lb BMI 32.1 BP 122/80 Blood Pressure Location Lt brachial Position Sitting Pulse 80 Pulse Source Pulse Oximeter Pulse Oximetry (%) 98 Oxygen Delivery Method Room Air Intake Visit Reasons: PE Intake Note: Pt is here today for PE. Allergies No Known Allergies Allergy (Verified 04/12/24 10:57) Medication List - Last Reconciled 04/12/24 by Virginia Soares MD amlodipine 5 mg PO DAILY blood sugar diagnostic ([employer]Touch Ultra Test strips) qd blood-glucose meter ([employer] Ultra2 Meter kit) qd olmesartan-hydrochlorothiazide 40-12.5 mg 1 tab PO DAILY pantoprazole 40 mg PO DAILY pravastatin 20 mg PO BEDTIME Tobacco use date assessed: 04/12/24 Dental Screening Dental Screen Date: 08/03/23 HPI PE HPI Details Pt presents for PE. [facility] Medical History (Updated 04/12/24 @ 11:45 by Virginia Soares MD) Tobacco dependence HTN (hypertension) Hyperlipidemia Surgical History History of esophagogastroduodenoscopy (EGD) Hx of colonoscopy History of hernia surgery Family History Father No problems noted. 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 Tobacco Use Status: Current everyday Tobacco user Tobacco use type: Cigarette Cigarettes Per Day: 6 e-Cigarette/Vaping Use: Never Used service: No Current occupational status: employed Cognitive needs: No Hearing needs: No Vision needs: Yes Questionnaire Thrive Questionnaire Date Thrive assessed: 01/23/24 I am a: Patient What is your living situation today?: I have a steady place to live Within the past 12 months, did the food you bought not last and you didn't have the money to get more?: Never true Within the past 12 months, did you worry whether your food would run out before you got money to buy more?: Never true Do you have trouble paying for medicines?: No Do you have trouble getting transportation to medical appointments?: No Do you have trouble paying your heating and electricity bill?: No Do you have trouble taking care of your child, family member or friend?: No Do you have trouble with day-to-day activities such as bathing, preparing meals, shopping, managing finances, etc.?: No Are you currently unemployed and looking for a job?: Yes Are you interested in more education?: No Please select the resources that you would like help with: None Currently or been in a relationship where the following occur: No concerns reported THRIVE Score: 0 ANTONIO-7 AMB Questionnaire ANTONIO-7 Date ANTONIO - 7 assessed: 01/23/24 Source: Developed by Drs. Rik Floyd, Akosua Del Angel, Jonathan Walden and colleagues, with an educational rei from [employer]. Review of Systems Const All systems reviewed & are unremarkable except as noted in HPI and below Reports no additional complaints Eyes Reports no additional complaints ENT Reports no additional complaints Card Reports no additional complaints Resp Reports no additional complaints GI Reports no additional complaints Reports no additional complaints Physical exam (Primary Care) Vital Signs: Last Vital Signs Pulse 80 04/12/24 10:57 BP 122/80 04/12/24 10:57 Pulse Ox 98 04/12/24 10:57 Oxygen Delivery Method Room Air 04/12/24 10:57 BMI result Body Mass Index 32.1 Tobacco/Smoking Status: Tobacco use Status Tobacco use date assessed 04/12/24 04/12/24 10:58 Patient Tobacco Use Status Current everyday Tobacco 04/12/24 10:58 Tobacco use type Cigarette 04/12/24 10:58 e-Cigarette/Vaping Use Never Used 04/12/24 10:58 Thrive Assessment: Date of Thrive Assessment Date Thrive assessed 01/23/24 04/12/24 10:58 Currently or been in a relationship where the following occur: No concerns reported Const General: no acute distress HENMT Head: Yes normal to inspection Ears: hearing grossly normal bilaterally General nose exam: Normal external nose present Face and sinus: Yes normal facial exam Mouth: Normal oral and palatal mucosa present Throat: Yes posterior oropharynx normal Eyes General: appearance normal, both eyes and all related structures Neck Neck: Yes no lymphadenopathy and Yes supple Resp Effort & Inspection: normal respiratory effort Auscultation: clear to auscultation bilaterally Cardio Rhythm: regular rhythm Heart sounds: S1 normal heart sound present and S2 normal heart sound present GI Inspection: Yes normal to inspection Palpation (GI): Soft to palpation Percussion: Yes normal to percussion Auscultation: normal bowel sounds Coding Level of Care Code Est Pt Prev Care 40-64y(90775) Diagnoses Annual physical exam Z00.00 HTN (hypertension) I10 Tobacco dependence F17.200 Hyperglycemia R73.9 Assessment & Plan Assessment & Plan (1) Annual physical exam: Code(s): Z00.00 - Encounter for general adult medical examination without abnormal findings Category: Medical Plan: Well-balanced diet regular physical activity discussed with the patient. He is up-to-date with colonoscopy due for recheck in September of 2024 (2) HTN (hypertension): Code(s): I10 - Essential (primary) hypertension Category: Medical Plan: Continue current medications (3) Tobacco dependence: Comment: 1 PPD X 30 yrs Code(s): F17.200 - Nicotine dependence, unspecified, uncomplicated Category: Medical Plan: Tobacco quitting discussed with the patient he will be referred to lung cancer screening program (4) Hyperglycemia: Code(s): R73.9 - Hyperglycemia, unspecified Category: Medical Plan: ADA diet regular exercise weight loss discussed with the patient follow-up in 6 months with a fasting labs before Orders: Orders Hemoglobin A1c 6 Months I10 - Essential (primary) hypertension, R73.9 - Hyperglycemia, unspecified, Z00.00 - Encounter for general adult medical examination without abnormal findings PSA,Total (Free>4and<10) 6 Months I10 - Essential (primary) hypertension, R73.9 - Hyperglycemia, unspecified, Z00.00 - Encounter for general adult medical examination without abnormal findings UA w Microscopic 6 Months I10 - Essential (primary) hypertension, R73.9 - Hyperglycemia, unspecified, Z00.00 - Encounter for general adult medical examination without abnormal findings Comprehensive [place]. Panel Fast 6 Months I10 - Essential (primary) hypertension, R73.9 - Hyperglycemia, unspecified, Z00.00 - Encounter for general adult medical examination without abnormal findings Complete Blood Count Auto Diff 6 Months I10 - Essential (primary) hypertension, R73.9 - Hyperglycemia, unspecified, Z00.00 - Encounter for general adult medical examination without abnormal findings Lipid Panel 6 Months I10 - Essential (primary) hypertension, R73.9 - Hyperglycemia, unspecified, Z00.00 - Encounter for general adult medical examination without abnormal findings Referrals Thoracic/General Surgery Referral F17.200 - Nicotine dependence, unspecified, uncomplicated
== END 2024-04-12 12:33 | disposition home or self-care (01) ==
PROVIDERS: PCP Internal Medicine; Visit Provider Internal Medicine
DX: Z00.00 Encounter for general adult medical examination without abnormal findings (principal); I10 Essential (primary) hypertension; F17.200 Nicotine dependence, unspecified, uncomplicated; R73.9 Hyperglycemia, unspecified

== ENCOUNTER → 2024-04-12 10:54 | Outpatient (BNVA) | payer OTHER, SELFPAY | PROVIDERS: PCP Internal Medicine; Visit Provider Internal Medicine | DX: Z00.00 Encounter for general adult medical examination without abnormal findings (principal); I10 Essential (primary) hypertension; R73.9 Hyperglycemia, unspecified; F17.200 Nicotine dependence, unspecified, uncomplicated; Z71.6 Tobacco abuse counseling | CPT/HCPCS: 99396 ==

== ENCOUNTER 2024-06-04 15:13 | Outpatient (AMB) | payer OTHER, SELFPAY ==
--- NOTE | 2024-06-04 15:16 | MHC.OFFVIS ---
Vital Signs 06/04/24 15:24 Height 5 ft 6 in Weight 202 lb 13.204 oz BMI 32.7 BP 118/76 Blood Pressure Location Rt brachial Position Sitting Pulse 98 Pulse Source Pulse Oximeter Pulse Oximetry (%) 97 Oxygen Delivery Method Room Air Intake Visit Reasons: 8 month follow up Intake Note: ESTABLISHED PATIENT for Steele's Esophagus FUV Chief Complaint; NO GI concerns per pt. Allergies No Known Allergies Allergy (Verified 06/04/24 15:16) HPI HPI 8 month follow up: Details: LAST VISIT Status post colonoscopy Tubular adenoma Steele's esophagus determined by endoscopy Plan Repeat colonoscopy in 1 year, sooner if clinically necessary. Patient will start taking pantoprazole 40 mg before breakfast. Patient is not on any PPI at this time. Diagnosed with possible Barretts although negative for intestinal dysplasia. Occasional acid reflux. Patient will be sent for upper endoscopy as well when he goes for his colonoscopy. He will call our office on as needed basis. He is agreeable to this plan and verbalizes understanding of instructions. He was given the opportunity to ask questions and all questions answered. ? Thank you for allowing me to participate in his care Medications New pantoprazole take one tablet half an hour before breakfast 40 mg PO DAILY 90 tabs 2RF K21.9 TODAY'S VISIT Patient is here today for follow-up and to discuss going for upper endoscopy and colonoscopy. Patient reports that he is taking pantoprazole and his symptoms of acid reflux are suppressed. Patient denies any nausea or vomiting. Denies any dyspepsia, dysphagia or odynophagia. Last endoscopy in 2022 recommendation was made for patient to have endoscopy again during his last procedure in September of 2023. Plan is to schedule patient for colonoscopy sometimes in September or October of this year and add endoscopy as well. Patient was diagnosed with Barretts in the past. Biopsy confirmed on endoscopy in 2022. Last colonoscopy showed sessile serrated polyp and tubular adenoma. No high-grade dysplasia or carcinoma found. Patient reports that he is moving his bowels well. However occasionally might have constipation and have to push. Small amount of blood when wiping during constipation. Patient denies taking any laxative. Patient admits that he does not drink enough water [facility] Medical History Nicotine dependence, cigarettes, uncomplicated HTN (hypertension) Hyperlipidemia Surgical History History of colonoscopy History of esophagogastroduodenoscopy (EGD) History of hernia surgery Family History Father No problems noted. 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 Tobacco Use Status: Current everyday Tobacco user Tobacco use type: Cigarette Cigarettes Per Day: 6 e-Cigarette/Vaping Use: Never Used service: No Current occupational status: employed Cognitive needs: No Hearing needs: No Vision needs: Yes Review of Systems Const Denies weight gain and Denies weight loss ENT Reports no additional complaints, Denies dysphagia and Denies odynophagia Card Reports no additional complaints Resp Reports no additional complaints GI Denies abdominal pain, Denies belching, Denies melena, Denies bloating, Denies change in bowel habits, Denies dysphagia, Denies excessive flatus, Denies dyspepsia, Denies heartburn, Denies diarrhea, Denies loose stools, Denies nausea, Denies odynophagia and Denies vomiting Reports no additional complaints Musc Reports no additional complaints Neuro Reports no additional complaints Psych Reports no additional complaints Endo Reports no additional complaints Physical Exam Vital Signs: Last Vital Signs Pulse 98 06/04/24 15:24 BP 118/76 06/04/24 15:24 Pulse Ox 97 06/04/24 15:24 Oxygen Delivery Method Room Air 06/04/24 15:24 BMI result Body Mass Index 32.7 Const General: healthy appearing and no acute distress Nutritional Appearance: obese Orientation/consciousness: patient oriented x3 Resp Effort & Inspection: normal respiratory effort, able to speak in complete sentences, no tracheal deviation and symmetric chest movement Auscultation: clear to auscultation bilaterally Cardio Rate: regular rate GI Inspection: Yes normal to inspection, No distended and Yes obesity Palpation (GI): Soft to palpation, not firm, nontender and No hepatosplenomegaly present Auscultation: normal bowel sounds General: Yes no CVA tenderness Back/Spine/Pelvis Back: no CVA tenderness Skin General skin exam: elasticity normal, turgor normal and dry skin Neuro General: patient oriented x3 Psych Appearance: grossly normal Mental Status: mental status grossly normal Assessment & Plan Assessment & Plan (1) Tubular adenoma: Code(s): D36.9 - Benign neoplasm, unspecified site (2) Steele's esophagus determined by endoscopy: Code(s): K22.70 - Steele's esophagus without dysplasia (3) GERD (gastroesophageal reflux disease): Code(s): K21.9 - Gastro-esophageal reflux disease without esophagitis Qualifiers: Esophagitis presence: esophagitis presence not specified Qualified Code(s): K21.9 - Gastro-esophageal reflux disease without esophagitis (4) Screen for colon cancer: Code(s): Z12.11 - Encounter for screening for malignant neoplasm of colon Plan Patient will be sent for upper endoscopy and colonoscopy. Barretts esophagus on endoscopy in 2022. Patient is currently on pantoprazole 40 mg daily and his symptoms are completely suppressed. Patient denies any epigastric pain or reflux. Denies dyspepsia, dysphagia or odynophagia. Tubular adenoma and sessile serrated polyps found on colonoscopy last year medium size polyp without high-grade dysplasia or carcinoma. What to expect before during and after procedure discussed with patient. Stressed with patient the importance of good bowel prep and clear liquid diet. Scheduled for September or October. Denies any cardiac or respiratory symptoms. No issues with anesthesia in the past. No history of sleep apnea. Patient is not on any anticoagulation medication. Patient will follow-up in our office after the procedure, sooner on as needed basis. He is agreeable to this plan and verbalizes understanding of instructions. He was given the opportunity to ask questions and all questions answered. Thank you for allowing me to participate in his care Medications: New bisacodyl (Dulcolax (bisacodyl)) take 4 tabs at noon the day before your colonoscopy 20 mg (4 x 5 mg) PO ONCE 1 day 4 tabs 0RF constipation Z12.11 - Encounter for screening for malignant neoplasm of colon polyethylene glycol 3350 (Miralax) As directed by gastroenterology department at [facility] 238 grams PO ONCE 238 grams 0RF Z12.11 - Encounter for screening for malignant neoplasm of colon Coding Level of Care Code Est Pt Level 3 (62800) Diagnoses Tubular adenoma D36.9 Steele's esophagus determined by endoscopy K22.70 Gastroesophageal reflux disease, unspecified whether esophagitis present K21.9 Esophagitis presence: esophagitis presence not specified Screen for colon cancer Z12.11 Time Spent (min) 25 Comment 15 minutes spent with patient and additional 10 minutes spent reviewing his records
[2024-06-04 15:24] VITALS: BP 118/76; PULSE 98; O2SAT 97; BMI 32.7
== END 2024-06-04 16:19 | disposition home or self-care (01) ==
PROVIDERS: PCP Internal Medicine; Visit Provider Nurse Practitioner Family
DX: K22.70 Barrett's esophagus without dysplasia (principal); K21.9 Gastro-esophageal reflux disease without esophagitis; Z12.11 Encounter for screening for malignant neoplasm of colon; Z86.0101 Personal history of adenomatous and serrated colon polyps
CPT/HCPCS: 99213

== ENCOUNTER → 2024-06-04 15:13 | Outpatient (BNVA) | payer OTHER, SELFPAY | PROVIDERS: PCP Internal Medicine; Visit Provider Nurse Practitioner Family | DX: Z01.818 Encounter for other preprocedural examination (principal); K22.70 Barrett's esophagus without dysplasia; K21.9 Gastro-esophageal reflux disease without esophagitis; D36.9 Benign neoplasm, unspecified site | CPT/HCPCS: 99212 ==

== ENCOUNTER 2024-07-12 10:39 | Outpatient (AMB) | payer OTHER, SELFPAY ==
--- NOTE | 2024-07-12 07:58 | MHC.OFFVIS ---
Intake Visit Reasons: Current Smoker Intake Note: Initial visit for this 54yo smoker with a 25PYH. Patient started smoking at age 19 for 35 years at 1/2-1ppd. Now 1/2ppd . Denies marijuana use. Denies second hand smoke exposure. Denies exposure to chemicals or substances like asbestos. . Denies known family history of lung cancer. Denies personal history of cancers. Denies chest CT in last year. . Denies recent travel outside the [place]. Reports history of testing positive for COVID. Admits receiving COVID Vaccine. . Had flu 2 weeks ago - still has mild cough - mostly resolved. Denies fever, chills, new/worsening cough, hemoptysis, hoarseness or dysphagia. Denies significant chest pain, significant dyspnea or unintentional weight loss. Patient Lung Cancer Screening Questionnaire reviewed with patient by provider. . Shared Decision Making Completed. Patient meets criteria. Discussed in detail with patient, the risk vs benefit of LDCT screening. Patient consents to proceed with scan. Discussed smoking cessation. Allergies No Known Allergies Allergy (Verified 06/04/24 15:16) [facility] Medical History (Updated 07/12/24 @ 11:13 by Malia Stuart PA-C) HTN (hypertension) IFG (impaired fasting glucose) Hyperlipidemia PALAK (obstructive sleep apnea) Nicotine dependence, cigarettes, uncomplicated Surgical History (Updated 06/17/24 @ 14:35 by Malia Stuart PA-C) History of hernia surgery History of esophagogastroduodenoscopy (EGD) History of colonoscopy Family History (Reviewed 06/04/24 @ 15:20 by Philip Pedraza [facility]) Father No problems noted. 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 - Patient meets criteria for LDCT for lung cancer screening purposes and is asymptomatic. - Smoking cessation counseling offered. Patients can always call [phone]. - Will arrange for a LDCT scan of the chest for screening purposes at [facility]. - Risks, benefits, and alternatives were discussed in detail and the patient agrees to proceed. - Risks discussed include but are not limited to: radiation exposure, anxiety during testing and while awaiting results, false negatives, false positives and possibility of additional intervention such as further imaging or surgical procedures for benign disease. - Benefits are obviously detection of lung cancer at an early stage which can lead to improved outcomes. - Discussed the importance of screening program compliance with adherence to yearly LDCT scan as scheduled - or sooner interval scans for personalized screening regimen. - Discussed follow up plan. Our office will send a letter discussing results and if needed set up phone call and office visit based on CT findings. - Patient educated on results categorization and the management decisions for suspicious findings potentially found on the screening LDCT scan. Any patient with a Lung RADS score of 3 or 4 will be reviewed by a multidisciplinary team at [facility] to form a plan of action in regards to scan findings. - If further work up is warranted for a suspicious lung finding this will be followed by the Lung Cancer Screening program in conjunction with the Thoracic Surgery Department at [facility]. - A copy of the office note and LDCT will be sent to the patient's PCP - as well as documentation on any associated further plans of care. - Incidental findings on LDCT are the PCP's responsibility. These findings are indicated with an S finding on the LDCT Assessment. A note discussing the findings will be sent to the PCP who is then responsible for further management. - All questions answered.? Coding Level of Care Code Lung Cancer Screening G0296 Diagnoses Nicotine dependence, cigarettes, uncomplicated F17.210
== END 2024-07-12 11:09 | disposition home or self-care (01) ==
PROVIDERS: PCP Internal Medicine; Visit Provider Physician Assistant Medical
DX: F17.210 Nicotine dependence, cigarettes, uncomplicated (principal)
CPT/HCPCS: G0296

== ENCOUNTER 2024-07-12 11:14 | Outpatient (REF) | payer OTHER, SELFPAY ==
--- NOTE | ~2024-07-12 | CT_ITS ---
CLINICAL HISTORY: F17.210 - Nicotine dependence, cigarettes, uncomplicated CT lung cancer screening (LDCT) Comparison: None Technique: Axial CT images of the chest using low-dose technique. Referring provider counseled the patient on shared decision-making for LDCT screening. Additional counseling was provided on smoking cessation. Effective radiation dose total: DLP 58.7 mGycm, CTDIvol 1.6 mGy. Findings: Lung: Mild centrilobular emphysema. Multiple pulmonary nodules: 2 mm in the right lower lobe medially series 6, image 88; 2 mm in the right middle lobe image 88; 2 mm in the left lower lobe image 106; 3 mm subpleural nodule of the left lower lobe image 127. Coronary artery calcifications: Moderate Limited upper abdomen: Unremarkable Other: None Impression: LungRADS 2 - Benign Appearance: Continue annual screening with low dose Chest CT in 12 months. ##L2# Category 1: Normal; continue annual screening Category 2: Benign appearance or behavior, continue annual screening Category 3: Probably benign, [address] recommended Category 4A: Suspicious, [address] recommended; may consider PET/CT Category 4B: Suspicious, Additional diagnostics and/or tissue sampling recommended Category 4X: Suspicious, Additional diagnostics and/or tissue sampling recommended Category 0: Recalls (incomplete screen due to Incomplete coverage, Noise, Respiratory motion, Expiration, Obscured by acute abnormality) This document has been electronically signed by: Kathy Sawyer MD on 07/15/2024 13:16:04
== END 2024-07-12 11:15 | disposition home or self-care (01) ==
LOC: HO.CT 11:14
PROVIDERS: PCP Internal Medicine; Visit Provider Physician Assistant Medical
DX: Z12.2 Encounter for screening for malignant neoplasm of respiratory organs (principal); F17.210 Nicotine dependence, cigarettes, uncomplicated
CPT/HCPCS: 71271; G0296

== ENCOUNTER → 2024-07-12 11:17 | Outpatient (BNV) | payer OTHER, SELFPAY | PROVIDERS: PCP Internal Medicine; Visit Provider Nuclear Medicine | DX: F17.210 Nicotine dependence, cigarettes, uncomplicated (principal) | CPT/HCPCS: 71271 ==

== ENCOUNTER 2024-10-17 07:44 | Day surgery (SDC) | payer OTHER, SELFPAY ==
[2024-10-15 13:03] VITALS: BMI 30.9
--- NOTE | 2024-10-16 09:21 | P.CONAN_ITS ---
Documented by User: Brissa Gomez NP 10/16/24 09:22 HPI - Anesthesia Eval Consult details Narrative: 54yo M for Upper Endoscopy and Colonoscopy [facility] Active Problems Active Problems: All Active Problems IFG (impaired fasting glucose) (Acute) PALAK (obstructive sleep apnea) (Acute) HTN (hypertension) (Acute) Nicotine dependence, cigarettes, uncomplicated (Acute) SOB (shortness of breath) (Acute) Hand pain, left (Acute) Right knee pain (Acute) Pruritus (Acute) Rectal bleeding (Acute) Hemorrhoids (Acute) Past Medical History Medical History HTN (hypertension) IFG (impaired fasting glucose) Hyperlipidemia PALAK (obstructive sleep apnea) Nicotine dependence, cigarettes, uncomplicated Family History Family History Father No problems noted. 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 a primary primary care sales representative to a significant other at home: No Do you presently have visiting nurse or other home services: No Patient Tobacco Use Status: Current everyday Tobacco user Tobacco use type: Cigarette Cigarettes Per Day: 10 Years Smoked: (onset 19yo, 1/2-1ppd x 35yrs, 25pyh) e-Cigarette/Vaping Use: Never Used service: No Current occupational status: employed Cognitive needs: No Hearing needs: No Vision needs: Yes Meds Allergies Allergy/AdvReac Type Severity Reaction Status Date / Time No Known Allergies Allergy Verified 10/17/24 09:24 Exam Height,Weight and Vital Signs: Height 5 ft 8 in Weight 92.079 kg Assessment and Plan Assessment Anesthesia Assessment: Chart Reviewed Final Anesthetic Review Family History of Problems with Anesthesia: No History of Problems with Anesthesia: No Documented by User: Monica Marino MD 10/17/24 10:01 PMFSH Past Medical History Medical History HTN (hypertension) IFG (impaired fasting glucose) Hyperlipidemia PALAK (obstructive sleep apnea) Nicotine dependence, cigarettes, uncomplicated Family History Family History Father No problems noted. 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 representative to a significant other at home: No Do you presently have visiting nurse or other home services: No Patient Tobacco Use Status: Current everyday Tobacco user Tobacco use type: Cigarette Cigarettes Per Day: 10 Years Smoked: (onset 19yo, 1/2-1ppd x 35yrs, 25pyh) e-Cigarette/Vaping Use: Never Used service: No Current occupational status: employed Cognitive needs: No Hearing needs: No Vision needs: Yes Meds Allergies Allergy/AdvReac Type Severity Reaction Status Date / Time No Known Allergies Allergy Verified 10/17/24 09:24 Exam Airway Mallampati Class: III TM Dist: >3cm Neck ROM: Full Loose/Missing/Broken Teeth: No Heart: RRR Lungs: CTA Assessment and Plan Assessment Anesthesia Assessment: Anesthesia Plan Discussed Final Anesthetic Review NPO: Yes ASA Class: II Final Preanesthetic Review: Meds/Allgs Chart Reviewed, Consent Obtained/Reviewed and Anes Risks/Benef Reviewed Patient Risk: Low Procedure Risk: Intermediate Anesthetic Plan Anesthetic Plan: MAC: Disposition: Standard PACU
[2024-10-17 09:20] VITALS: BP 127/81; PULSE 75; RESP 14; TEMP 36.6; O2SAT 97; BMI 29.0
[2024-10-17] MEDS: Lactated Ringers 1,000 ML 100 ML IVCONT (09:33)
--- NOTE | 2024-10-17 10:08 | MHC.SHP ---
Pre-Procedural Eval Section A - 24 Hr Update-Section A only Date of Service: 10/17/24 Section B - Complete if H&P > 30 days Chief Complaint: BE, hx of polyps Details of Present Illness: History of esophagogastroduodenoscopy (EGD) History of hernia surgery Hx of colonoscopy Family History Father No problems noted. Mother Hypertension Stroke Present Medications: see Short Stay Collaborative assessment Allergies: Allergies Allergy/AdvReac Type Severity Reaction Status Date / Time No Known Allergies Allergy Verified 10/17/24 09:24 Review of Systems Review of Systems Comment: Ten point ROS negative Exam Exam Comment: Gen appear: No acute distress HEENT: no icterus Chest: No overt resp distress Abd: soft, nontender, nondistended Psych: Stable affect, answering questions appropriately Neuro: A/Ox3 noted to move all extremities spontaneously Ext: no peripheral edema Plan Diagnosis/Plan: Unchanged I have reviewed the history and physical and performed a pertinent physical examination on my patient. No changes have occurred unless specified. Time Spent With Patient Time: Total time managing care of this patient today ____ minutes.
--- NOTE | 2024-10-17 10:46 | P.OPN-COLO_ITS ---
Colonoscopy Operative Note Operative Note Date of Service: 10/17/24 Narrative: Procedure: Upper endoscopy and colonoscopy Indication: Hx of BE, Hx of polyps Endoscopist: Jazz Noonan MD Anesthesia Provider: Matthew Menjivar CRNA Anesthesia type: MAC Instrument: [id number] and [id number] EGD Procedure:?? The procedure, indications, preparation and potential complications were reviewed with the patient, who indicated understanding and gave written informed consent to proceed. A distal attachment was affixed to the tip of the scope and the endoscope was introduced through the mouth, and advanced to the 2nd part of the duodenum. The mucosa was carefully examined on slow withdrawal of the endoscope. The patient tolerated the procedure well. There were no immediate complications.? EGD Findings:? * Esophagus:? Normal esophageal mucosa was noted. The Z-line was at 40 cm and irregular up to 39 cm. Cold forceps biopsies were taken from GE junction to rule out Barretts esophagus. * Stomach:? Mild erythema in the antrum. Retroflexion was performed in the cardia. * Duodenum:? Normal duodenal mucosa. Colonoscopy Procedure:? The patient was then turned for the colonoscopy. A digital rectal exam was performed which was abnormal for external hemorrhoids.? A distal attachment cap was affixed to the tip of the scope and the colonoscope was then inserted through the anus and advanced through the colon and advanced to the cecum at 75 cm and terminal ileum.? Appendiceal orifice and ileocecal valve were identified. Mucosa was carefully examined under high definition white light as the instrument was slowly withdrawn in a retrograde panoramic fashion. Retroflexion was performed in rectum. The procedure was not difficult. The quality of the prep was BBPS: 3+2+3 = adequate Withdrawal time 12 minutes Limitations: No limitations Findings: Mucosa: Normal colon and terminal ileum mucosa. Protruding lesions: * One sessile polyp of size 6 mm noted in the transverse colon. Cold snare polypectomy was performed. The polyp was completely removed and retrieved. * Medium internal hemorrhoids without stigmata of recent bleeding. Excavated lesions: * Moderate diverticulosis of left colon. Impression: 1. Irregular Z line (biopsy) 2. Gastritis 3. Normal duodenum 4. Normal colon and terminal ileum mucosa 5. 1 polyp removed 6. Diverticulosis 7. External and internal hemorrhoids Recommendations:?? * Follow-up path results * Avoid NSAIDs * H Pylori treatment if biopsies + * Repeat EGD contingent on presence and extent of Barretts esophagus * Repeat colonoscopy for CRC screening in 5-7 years depending on path.
[2024-10-17 10:47] VITALS: BP 104/62; PULSE 60; RESP 16; TEMP 36.1; O2SAT 95
[2024-10-17 11:02] VITALS: BP 118/75; PULSE 67; RESP 20; TEMP 36.9; O2SAT 99
--- NOTE | 2024-10-17 11:27 | PC.NURSE ---
PATIENT IS MALAY SPEAKING ONLY. 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
== END 2024-10-17 11:29 | disposition home or self-care (01) ==
PROVIDERS: PCP Internal Medicine; Visit Provider Internal Medicine
PROC: (CPT 45385; principal; 2024-10-17 10:20)
DX: Z12.11 Encounter for screening for malignant neoplasm of colon (principal); Z86.0101 Personal history of adenomatous and serrated colon polyps; D12.3 Benign neoplasm of transverse colon; K57.30 Diverticulosis of large intestine without perforation or abscess without bleeding; K64.8 Other hemorrhoids; K64.4 Residual hemorrhoidal skin tags; K21.9 Gastro-esophageal reflux disease without esophagitis; Z87.19 Personal history of other diseases of the digestive system; K29.70 Gastritis, unspecified, without bleeding; K22.89 Other specified disease of esophagus; I10 Essential (primary) hypertension; E78.5 Hyperlipidemia, unspecified; R73.01 Impaired fasting glucose; G47.33 Obstructive sleep apnea (adult) (pediatric); Z79.899 Other long term (current) drug therapy; F17.210 Nicotine dependence, cigarettes, uncomplicated
CPT/HCPCS: 45385; 43239; 88305; 88313; J2371; J2704

== ENCOUNTER → 2024-10-17 07:44 | Outpatient (BNV) | payer OTHER, SELFPAY | PROVIDERS: PCP Internal Medicine; Visit Provider Internal Medicine | DX: Z12.11 Encounter for screening for malignant neoplasm of colon (principal); Z86.0100 Personal history of colon polyps, unspecified; D12.3 Benign neoplasm of transverse colon; K57.90 Diverticulosis of intestine, part unspecified, without perforation or abscess without bleeding; K64.8 Other hemorrhoids; K22.70 Barrett's esophagus without dysplasia; K29.70 Gastritis, unspecified, without bleeding | CPT/HCPCS: 43239; 45385 ==

== ENCOUNTER 2024-12-16 10:52 | Outpatient (AMB) | payer OTHER, SELFPAY ==
[2024-12-16 11:02] VITALS: BP 126/80; PULSE 88; TEMP 37; O2SAT 96; BMI 29.9
--- NOTE | 2024-12-16 11:02 | MHC.OFFWIV ---
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 Reports pain with ROM. 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 Denies injury or trauma to the shoulder. Denies Numbness or tingling. PFSH Medical History HTN (hypertension) IFG (impaired fasting glucose) Hyperlipidemia PLAAK (obstructive sleep apnea) Nicotine dependence, cigarettes, uncomplicated Surgical History History of hernia surgery History of esophagogastroduodenoscopy (EGD) History of colonoscopy Family History Father No problems noted. 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 a primary patient care manager to a significant other at home: No Do you presently have visiting nurse or other home services: No Patient Tobacco Use Status: Current everyday Tobacco user Tobacco use type: Cigarette Cigarettes Per Day: 10 Years Smoked: (onset 19yo, 1/2-1ppd x 35yrs, 25pyh) e-Cigarette/Vaping Use: Never Used service: No Current occupational status: employed Cognitive needs: No Hearing needs: No Vision needs: Yes Review of Systems Const All systems reviewed & are unremarkable except as noted in HPI and below Physical Exam Vital Signs: Last Vital Signs Temp 98.6 F 12/16/24 11:02 Pulse 88 12/16/24 11:02 BP 126/80 12/16/24 11:02 Pulse Ox 96 12/16/24 11:02 Oxygen Delivery Method Room Air 12/16/24 11:02 BMI result Body Mass Index 29.9 Const General: no acute distress; No comfortable Nutritional Appearance: well nourished Orientation/consciousness: patient oriented x3 Neuro General: patient oriented x3, gait normal and moves all extremities Extrem Right upper extremity: shoulder/upper arm Details: normal to inspection, tenderness Location: of the A-C joint and of the proximal humerus and abnormal ROM Details: pain with active ROM and pain with passive ROM; no swelling, no ecchymosis, no crepitus and no deformity Left upper extremity: normal to inspection and full ROM Psych Speech and movement: Normal speech and movement present Assessment & Plan Assessment & Plan (1) Sprain of shoulder, right: Code(s): S43.401A - Unspecified sprain of right shoulder joint, initial encounter Qualifiers: Encounter type: initial encounter Shoulder sprain type: unspecified sprain Qualified Code(s): S43.401A - Unspecified sprain of right shoulder joint, initial encounter Plan: Ordered Xray of shoulder. Placed referral to Physical therapy. Ice/Hot and Rest joint. Prescribed Meloxicam, prednisone and Acetaminophen for pain relief. Orders: Orders XR shoulder RT min 2V Today S43.401A - Unspecified sprain of right shoulder joint, initial encounter PT Evaluation and Treatment Today S43.401A - Unspecified sprain of right shoulder joint, initial encounter Medications: New meloxicam 15 mg PO DAILY 20 tabs 0RF S43.401A - Unspecified sprain of right shoulder joint, initial encounter acetaminophen 1,000 mg (2 x 500 mg) PO Q6H PRN 30 caps 0RF pain S43.401A - Unspecified sprain of right shoulder joint, initial encounter prednisone 20 mg PO DAILY 7 tabs 0RF 7 days S43.401A - Unspecified sprain of right shoulder joint, initial encounter cyclobenzaprine 5 mg PO BEDTIME 10 tabs 0RF S43.401A - Unspecified sprain of right shoulder joint, initial encounter Coding Level of Care Code Est Pt Level 4 (31409) Diagnoses Sprain of right shoulder, unspecified shoulder sprain type, initial encounter S43.401A Encounter type: initial encounter Shoulder sprain type: unspecified sprain Time Spent (min) 20
== END 2024-12-16 11:40 | disposition home or self-care (01) ==
PROVIDERS: PCP Internal Medicine; Visit Provider Nurse Practitioner Family
DX: S43.401A Unspecified sprain of right shoulder joint, initial encounter (principal)

== ENCOUNTER 2024-12-16 10:52 | Outpatient (REF) | payer OTHER, SELFPAY ==
--- NOTE | ~2024-12-16 | XR_ITS ---
EXAMINATION: XR SHOULDER 2 OR MORE VIEWS RIGHT HISTORY: S43.401A - Unspecified sprain of right shoulder joint, initial encounter COMPARISON: There are no prior studies available for comparison. FINDINGS: Three views of the right shoulder are submitted. Osseous mineralization is normal. There are amorphous calcifications adjacent to the inferior glenoid which may be the result of old trauma. There is no acute fracture or dislocation. The glenohumeral joint is maintained. There is mild degenerative change of the AC joint with osteophyte formation. The soft tissues are unremarkable. XR/XR shoulder RT min 2V IMPRESSION: Mild degenerative change of the AC joint. Amorphous calcifications adjacent to the inferior glenoid which may be the result of old trauma. Electronically signed by: Rik Goodman MD 12/16/2024 11:50 AM EDT
== END 2024-12-16 10:53 | disposition home or self-care (01) ==
LOC: HO.HMGCX 10:52
PROVIDERS: PCP Internal Medicine; Visit Provider Nurse Practitioner Family
DX: S43.401A Unspecified sprain of right shoulder joint, initial encounter (principal); M25.511 Pain in right shoulder; X58.XXXA Exposure to other specified factors, initial encounter
CPT/HCPCS: 73030; 99212

== ENCOUNTER → 2024-12-16 11:34 | Outpatient (BNV) | payer OTHER, SELFPAY | PROVIDERS: PCP Internal Medicine; Visit Provider Radiology Diagnostic Radiology | DX: S43.401A Unspecified sprain of right shoulder joint, initial encounter (principal) | CPT/HCPCS: 73030 ==

== ENCOUNTER 2025-01-15 15:33 | Outpatient (AMB) | payer OTHER, SELFPAY ==
--- NOTE | 2025-01-15 15:36 | A.OFFVIS_ITS ---
Vital Signs 01/15/25 15:38 Height 5 ft 8 in Weight 193 lb BMI 29.3 BP 142/90 H Blood Pressure Location Lt brachial Position Sitting Pulse 106 H Pulse Source Pulse Oximeter Pulse Oximetry (%) 96 Oxygen Delivery Method Room Air Intake Visit Reasons: results EGD PT R/S Intake Note: ESTABLISHED PATIENT for Steele's Esophagus mgmt. S/P EGD. Chief Complaint; Pt denies any GI changes or new sx since last visit. 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 Barretts esophagus on endoscopy in 2022. Patient is currently on pantoprazole 40 mg daily and his symptoms are completely suppressed. Patient denies any epigastric pain or reflux. Denies dyspepsia, dysphagia or odynophagia. Tubular adenoma and sessile serrated polyps found on colonoscopy last year medium size polyp without high- grade dysplasia or carcinoma. What to expect before during and after procedure discussed with patient. Stressed with patient the importance of good bowel prep and clear liquid diet. Scheduled for September or October. Denies any cardiac or res piratory symptoms. No issues with anesthesia in the past. No history of sleep apnea. Patient is not on any anticoagulation medication. Patient will follow-up in our office after the procedure, sooner on as needed basis. He is agreeable to this plan and verbalizes understanding of instructions. He was given the opportunity to ask questions and all questions answered. ? Thank you for allowing me to participate in his care New bisacodyl (Dulcolax (bisacodyl)) take 4 tabs at noon the day before your colonoscopy 20 mg (4 x 5 mg) PO ONCE 1 day 4 tabs 0RF constipation Z12.11 polyethylene glycol 3350 (Miralax) As directed by gastroenterology department at [facility] 238 grams PO ONCE 238 grams 0RF Z12.11 UPPER ENDOSCOPY AND COLONOSCOPY EGD Findings:? * Esophagus:? Normal esophageal mucosa was noted. The Z-line was at 40 cm and irregular up to 39 cm. Cold forceps biopsies were taken from GE junction to rule out Barretts esophagus. * Stomach:? Mild erythema in the antrum. Retroflexion was performed in the cardia. * Duodenum:? Normal duodenal mucosa. Colonoscopy Procedure:? The patient was then turned for the colonoscopy. A digital rectal exam was performed which was abnormal for external hemorrhoids.? A distal attachment cap was affixed to the tip of the scope and the colonoscope was then inserted through the anus and advanced through the colon and advanced to the cecum at 75 cm and terminal ileum.? Appendiceal orifice and ileocecal valve were identified. Mucosa was carefully examined under high definition white light as the instrument was slowly withdrawn in a retrograde panoramic fashion. Retroflexion was performed in rectum. The procedure was not difficult. The quality of the prep was BBPS: 3+2+3 = adequate Withdrawal time 12 minutes Limitations: No limitations Findings: Mucosa: Normal colon and terminal ileum mucosa. Protruding lesions: * One sessile polyp of size 6 mm noted in the transverse colon. Cold snare polypectomy was performed. The polyp was completely removed and retrieved. * Medium internal hemorrhoids without stigmata of recent bleeding.Excavated lesions: * Moderate diverticulosis of left colon. Impression: 1. Irregular Z line (biopsy) 2. Gastritis 3. Normal duodenum 4. Normal colon and terminal ileum mucosa 5. 1 polyp removed 6. Diverticulosis 7. External and internal hemorrhoids Recommendations:?? * Follow-up path results * Avoid NSAIDs * H Pylori treatment if biopsies + * Repeat EGD contingent on presence and extent of Barretts esophagus * Repeat colonoscopy for CRC screening in 5-7 years depending on path. PATHOLOGY RESULTS Diagnosis A. Gastroesophageal junction, biopsy: Squamocolumnar junctional mucosa with mild chronic inflammation; negative for intestinal metaplasia/dysplasia. B. Colon, transverse, polypectomy: Fragments of sessile serrated lesion/polyp; negative for dysplasia. Clinical History Pre-Op Dx: BE, history of polyps Post-Op Dx: Gastritis, irregular z-line, external hemorrhoids, diverticulosis, colon polyp Microscopic Description A-B. Microscopic sections reviewed. A. Special stain for ABS supports the diagnosis. Material Received A. GE junction bx's R/O Steele's B. Transverse colon polyp Gross Description Received in two parts. Part A: Received in formalin labeled ?GE junction bx's, rule out Steele's? are four portillo-pink irregular tissue fragments ranging from 0.2 to 0.3 cm, submitted in toto in a cassette labeled A. Part B: Received in formalin labeled ?transverse colon polyp? is a 1.5 x 0.8-1.0 cm butterfly-shaped portion of focally hyperemic and congested portillo-red mucosa measuring less than 0.1 cm in thickness. The resected base is inked and the specimen is sectioned and entirely submitted in a cassette labeled B. TODAY'S VISIT: Patient is here today for follow-up and to discuss upper endoscopy in colonoscopy results. One sessile serrated polyp found, recommendation to repeat colonoscopy in 5 years. Steele's esophagus not found. Patient reports that he is taking his pantoprazole every morning. Symptoms of acid reflux are suppressed. Patient denies dyspepsia, dysphagia or odynophagia. Denies melena, hematochezia, unintentional weight loss or ribbon like stools. Patient reports to be feeling fairly well. No ill effects from the prep, anesthesia or procedure itself. [facility] Medical History Sprain of shoulder, right HTN (hypertension) IFG (impaired fasting glucose) Hyperlipidemia PALAK (obstructive sleep apnea) Nicotine dependence, cigarettes, uncomplicated Surgical History History of hernia surgery History of esophagogastroduodenoscopy (EGD) History of colonoscopy Family History Father No problems noted. 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 a primary animal caretaker supervisor to a significant other at home: No Do you presently have visiting nurse or other home services: No Patient Tobacco Use Status: Current everyday Tobacco user Tobacco use type: Cigarette Cigarettes Per Day: 10 Years Smoked: (onset 19yo, 1/2-1ppd x 35yrs, 25pyh) e-Cigarette/Vaping Use: Never Used service: No Current occupational status: employed Cognitive needs: No Hearing needs: No Vision needs: Yes Review of Systems Const Denies weight gain and Denies weight loss ENT Reports no additional complaints, Denies dysphagia and Denies odynophagia Card Reports no additional complaints Resp Reports no additional complaints GI Denies abdominal pain, Denies belching, Denies melena, Denies bloating, Denies change in bowel habits, Denies dysphagia, Denies excessive flatus, Denies dyspepsia, Denies heartburn, Denies diarrhea, Denies loose stools, Denies nausea, Denies odynophagia and Denies vomiting Reports no additional complaints Musc Reports no additional complaints Neuro Reports no additional complaints Psych Reports no additional complaints Endo Reports no additional complaints Physical Exam Vital Signs: Last Vital Signs Pulse 106 H 01/15/25 15:38 BP 142/90 H 01/15/25 15:38 Pulse Ox 96 01/15/25 15:38 Oxygen Delivery Method Room Air 01/15/25 15:38 BMI result Body Mass Index 29.3 Const General: healthy appearing and no acute distress Nutritional Appearance: obese Orientation/consciousness: patient oriented x3 Resp Effort & Inspection: normal respiratory effort, able to speak in complete sentences, no tracheal deviation and symmetric chest movement Auscultation: clear to auscultation bilaterally Cardio Rate: regular rate GI Inspection: Yes normal to inspection, No distended and Yes obesity Palpation (GI): Soft to palpation, not firm, nontender and No hepatosplenomegaly present Auscultation: normal bowel sounds General: Yes no CVA tenderness Back/Spine/Pelvis Back: no CVA tenderness Skin General skin exam: elasticity normal, turgor normal and dry skin Neuro General: patient oriented x3 Psych Appearance: grossly normal Mental Status: mental status grossly normal Assessment & Plan Assessment & Plan (1) Gastroesophageal reflux disease: Code(s): K21.9 - Gastro-esophageal reflux disease without esophagitis Qualifiers: Esophagitis presence: without esophagitis Qualified Code(s): K21.9 - Gastro-esophageal reflux disease without esophagitis (2) Status post colonoscopy: Code(s): Z98.890 - Other specified postprocedural states (3) Sessile serrated polyp of colon: Code(s): D12.6 - Benign neoplasm of colon, unspecified Plan Continue pantoprazole daily. Avoid dietary triggers in late night snacking. Staying upright for minimal 3 hours after meals discussed with patient. Patient will increase fluid intake. Patient was encouraged to take fiber, fiber diet. Follow-up in 6 months, sooner if needed basis. Patient is agreeable to this plan and verbalizes understanding of instructions. He was given the opportunity to ask questions and all questions answered. Thank you for allowing me to participate in his care Medications: New polyethylene glycol 3350 (Miralax) As directed by gastroenterology department at [facility] 238 grams PO ONCE 238 grams 0RF Z12.11 - Encounter for screening for malignant neoplasm of colon Refilled pantoprazole take one tablet half an hour before breakfast 40 mg PO DAILY 90 tabs 4RF K21.9 - Gastro-esophageal reflux disease without esophagitis Coding Level of Care Code Est Pt Level 4 (16468) Complex EM visit Add On G2211 Diagnoses Gastroesophageal reflux disease without esophagitis K21.9 Esophagitis presence: without esophagitis Status post colonoscopy Z98.890 Sessile serrated polyp of colon D12.6 Time Spent (min) 35 Comment 25 minute spent with patient and additional 10 minutes spent reviewing his records
[2025-01-15 15:38] VITALS: BP 142/90; PULSE 106; O2SAT 96; BMI 29.3
== END 2025-01-15 16:06 | disposition home or self-care (01) ==
PROVIDERS: PCP Internal Medicine; Visit Provider Nurse Practitioner Family
DX: K21.9 Gastro-esophageal reflux disease without esophagitis (principal); Z98.890 Other specified postprocedural states; D12.6 Benign neoplasm of colon, unspecified
CPT/HCPCS: 99214

== ENCOUNTER → 2025-01-15 15:33 | Outpatient (BNVA) | payer OTHER, SELFPAY | PROVIDERS: PCP Internal Medicine; Visit Provider Nurse Practitioner Family | DX: K21.9 Gastro-esophageal reflux disease without esophagitis (principal); D12.6 Benign neoplasm of colon, unspecified; Z98.890 Other specified postprocedural states | CPT/HCPCS: 99212 ==

== ENCOUNTER 2025-01-30 10:20 | Outpatient (REF) | payer OTHER, SELFPAY ==
[2025-01-30 13:18] LABS: MANUAL DIFF FLAG NO
[2025-01-30 13:24] LABS: Hematocrit 43.5 % (42.0-52.0); Hemoglobin 14.9 g/dl (14.0-18.0); Imm Gran Abs Auto 0.02 X10*3/uL (0.00-0.03); Imm Gran Pct Auto 0.3 % (0.0-0.4); Lymphocytes Absolute Auto 1.5 X10*3/uL (1.2-4.9); Mean Corpuscular HGB Conc 34.3 g/dl (31.0-36.0); Mean Corpuscular Hemoglobin 32.3 pg (27.0-33.0); Mean Corpuscular Volume 94.4 fL (80.0-98.0); NRBC Abs Auto 0.000 X10*3/uL (0.0-0.012); NRBC Pct Auto 0.0 /100WBC (0.0-0.2); Platelet Count 208 X10*3/uL (160-400); Red Blood Count 4.61 X10*6/uL (4.60-5.80); White Blood Count 7.6 X10*3/uL (4.8-10.8)
[2025-01-30 13:25] LABS: Appearance Urine Clear; Glucose Urine UA Negative (Negative); PH 6.5 (5.0-9.0); Specific Gravity - Urine 1.010 (1.005-1.025)
[2025-01-30 13:34] LABS: Hemoglobin A1C 138.7029 umol/L
[2025-01-30 13:52] LABS: PSA,Total (Free>4and<10) 1.22 ng/mL (0.00-4.00)
[2025-01-30 13:58] LABS: Alanine Aminotransferase 21 U/L (0-40); Albumin Level 4.7 g/dL (3.5-5.0); Alkaline Phosphatase 56 U/L (39-117); Anion Gap 11 (12-20); Aspartate Amino Transferase 24 U/L (5-37); Blood Urea Nitrogen 19 mg/dL (9-16); Calcium 9.2 mg/dL (8.4-10.2); Carbon Dioxide 28 mmol/L (22-29); Chloride 106 mmol/L (96-108); Cholesterol 198 mg/dL (<200); Estimated Glomerular Filt Rate > 60; HDL Cholesterol 53 mg/dL (>40); Potassium 4.7 mmol/L (3.3-5.1); Sodium 140 mmol/L (135-145); Total Protein 7.3 g/dL (6.5-8.0); Triglycerides 70 mg/dL (<150)
== END 2025-01-30 10:21 | disposition home or self-care (01) ==
LOC: HO.HMGCLDS 10:20
PROVIDERS: PCP Internal Medicine; Visit Provider Internal Medicine
DX: Z00.00 Encounter for general adult medical examination without abnormal findings (principal); Z12.5 Encounter for screening for malignant neoplasm of prostate; I10 Essential (primary) hypertension; R73.9 Hyperglycemia, unspecified
CPT/HCPCS: 36415; 80053; 80061; 81001; 83036; 84153; 85025

== ENCOUNTER 2025-04-17 11:49 | Outpatient (AMB) | payer OTHER, SELFPAY ==
--- NOTE | 2025-04-17 11:51 | A.OFFPC_ITS ---
Vital Signs 04/17/25 11:52 Height 5 ft 8 in Weight 198 lb BMI 30.1 BP 106/62 Blood Pressure Location Lt brachial Position Sitting Respiration 16 Pulse 73 Pulse Source Pulse Oximeter Temp 99.1 F Temp Source Oral Pulse Oximetry (%) 97 Oxygen Delivery Method Room Air Intake Visit Reasons: Annual PE- PHQ-9 needed Intake Note: Pt is here today for PE. Allergies No Known Allergies Allergy (Verified 04/17/25 11:57) Medication List - Last Reconciled 04/17/25 by Virginia Soares MD acetaminophen 1,000 mg (2 x 500 mg) PO Q6H PRN amlodipine 5 mg PO DAILY blood sugar diagnostic (AvexxinTouch Ultra Test strips) qd blood-glucose meter ([employer] Ultra2 Meter kit) qd olmesartan-hydrochlorothiazide 40-12.5 mg 1 tab PO DAILY pantoprazole 40 mg PO DAILY polyethylene glycol 3350 (Miralax) 238 grams PO ONCE pravastatin 20 mg PO BEDTIME Tobacco use date assessed: 04/12/24 Dental Screening Dental Screen Date: 04/17/25 Did you have a dental visit in the last 12 months?: Yes Did you have a dental problem in the last 6 months where you did not have access to dental care?: No Was dental information given to patient?: Patient has dentist HPI Annual PE- PHQ-9 needed HPI Details Pt presents for PE. Pt c/o 6 weeks sensation of irregular heart beats lasting a few mins, on and off worse with physical activity but also at rest. Patient reports chest tightness during the episodes especially with physical activity. Patient denies diaphoresis, jaw or shoulder pain. Patient has been under increased stress he bought a house in [place] and is planning to move there. [facility] Medical History (Updated 04/17/25 @ 12:59 by Virginia Soares MD) Hyperlipidemia Sprain of shoulder, right HTN (hypertension) IFG (impaired fasting glucose) PALAK (obstructive sleep apnea) Nicotine dependence, cigarettes, uncomplicated Surgical History (Updated 04/17/25 @ 12:58 by Virginia Soares MD) History of esophagogastroduodenoscopy (EGD) History of hernia surgery History of colonoscopy Family History Father No problems noted. 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 1. Little interest or pleasure in doing things: not at all 2. Feeling down, depressed, or hopeless: not at all 3. Trouble falling or staying asleep, or sleeping too much: not at all 4. Feeling tired or having little energy: not at all 5. Poor appetite or overeating: not at all 6. Feeling bad about yourself - or that you are a failure or have let yourself or your family down: not at all 7. Trouble concentrating on things, such as reading the newspaper or watching television: not at all 8. Moving or speaking so slowly that other people could have noticed. Or the opposite - being so fidgety or restless that you have been moving around a lot more than usual: not at all 9. Thoughts that you would be better off or of hurting yourself in some way: not at all Total score: 0 Depression Screening Interpretation: Negative Depression Screening Done: Yes 85228 - PHQ-9 Billing: Yes Source: Developed by Drs. Rik Floyd, Akosua Del Angel, Jonathan Walden and colleagues, with an educational rei from Isabella Oliver. Thrive Questionnaire Date Thrive assessed: 04/17/25 I am a: Patient What is your living situation today?: I have a steady place to live Within the past 12 months, did the food you bought not last and you didn't have the money to get more?: Never true Within the past 12 months, did you worry whether your food would run out before you got money to buy more?: Never true Do you have trouble paying for medicines?: No Do you have trouble getting transportation to medical appointments?: No Do you have trouble paying your heating and electricity bill?: No Do you have trouble taking care of your child, family member or friend?: No Do you have trouble with day-to-day activities such as bathing, preparing meals, shopping, managing finances, etc.?: No Are you currently unemployed and looking for a job?: No Are you interested in more education?: No THRIVE Score: 0 AUDIT C Alcohol Use Questionnaire (AUDIT-C) 1. How often do you have a drink containing alcohol?: Monthly or less 2. How many drinks containing alcohol do you have on a typical day when you are drinking?: 1 or 2 3. How often do you have six or more drinks on one occasion?: Never Total Score: 1 ANTONIO-7 AMB Questionnaire ANTONIO-7 Date ANTONIO - 7 assessed: 04/17/25 Feeling nervous, anxious, or on edge: 0 = Not at all Not being able to stop or control worryin = Not at all Worrying too much about different things: 0 = Not at all Trouble relaxin = Not at all Being so restless that it is hard to sit still: 0 = Not at all Becoming easily annoyed or irritable: 0 = Not at all Feeling afraid as if something awful might happen: 0 = Not at all Total ANTONIO-7 score (0-4 normal; 5-9 mild; 10-14 moderate; 15-21 severe): 0 Source: Developed by Drs. Rik Floyd, Akosua Del Angel, Jonathan Walden and colleagues, with an educational rei from Isabella Oliver. ANTONIO-7 Assessment Billing ANTONIO-7 Assessment Tool: ANTONIO-7 Assessment 19904 Review of Systems Const All systems reviewed & are unremarkable except as noted in HPI and below Eyes Reports no additional complaints ENT Reports no additional complaints Card Reports no additional complaints Resp Reports no additional complaints GI Reports no additional complaints Reports no additional complaints Physical exam (Primary Care) Vital Signs: Last Vital Signs Temp 99.1 F 04/17/25 11:52 Pulse 73 04/17/25 11:52 Resp 16 04/17/25 11:52 BP 106/62 04/17/25 11:52 Pulse Ox 97 04/17/25 11:52 Oxygen Delivery Method Room Air 04/17/25 11:52 BMI result Body Mass Index 30.1 Tobacco/Smoking Status: Tobacco use Status Tobacco use date assessed 04/12/24 04/17/25 11:52 Patient Tobacco Use Status Current everyday Tobacco 04/17/25 11:52 Tobacco use type Cigarette 04/17/25 11:52 e-Cigarette/Vaping Use Never Used 04/17/25 11:52 PHQ-9: PHQ-9 Score PHQ-9: Total score 0 04/17/25 11:54 Depression Screening Interpretation: Negative Thrive Assessment: Date of Thrive Assessment Date Thrive assessed 04/17/25 04/17/25 11:52 Const General: no acute distress HENMT Head: Yes normal to inspection Ears: TM's normal bilaterally Face and sinus: Yes normal facial exam Throat: Yes posterior oropharynx normal Eyes General: appearance normal, both eyes and all related structures Neck Neck: Yes no lymphadenopathy and Yes supple Resp Effort & Inspection: normal respiratory effort Auscultation: clear to auscultation bilaterally Cardio Rhythm: regular rhythm Heart sounds: S1 normal heart sound present and S2 normal heart sound present GI Inspection: Yes normal to inspection Palpation (GI): Soft to palpation Percussion: Yes normal to percussion Auscultation: normal bowel sounds Coding Level of Care Code Est Pt Prev Care 40-64y(79418) Diagnoses Angina at rest I20.89 HTN (hypertension) I10 Nicotine dependence, cigarettes, uncomplicated F17.210 Annual physical exam Z00.00 Hyperlipidemia E78.5 Additional Codes ANTONIO-7 Assessment Billing - ANTONIO-7 Assessment Tool: ANTONIO-7 Assessment 04636 ([id number]) PHQ-9 - 50720 - PHQ-9 Billing: Yes ([id number]) Assessment & Plan Assessment & Plan (1) Angina at rest: Code(s): I20.89 - Other forms of angina pectoris Category: Medical Plan: EKG showed normal sinus rhythm no acute ST-T changes, obtain nuclear stress test to evaluate for angina (2) HTN (hypertension): Code(s): I10 - Essential (primary) hypertension Category: Medical Plan: Continue medications (3) Nicotine dependence, cigarettes, uncomplicated: Comment: (onset 19yo, 1/2-1ppd x 35yrs, 25pyh) Code(s): F17.210 - Nicotine dependence, cigarettes, uncomplicated Category: Medical Plan: Tobacco quitting discussed with the patient follow-up with lung cancer screening program (4) Annual physical exam: Code(s): Z00.00 - Encounter for general adult medical examination without abnormal findings Category: Medical Plan: Well-balanced diet regular physical activity discussed with the patient tobacco quitting was recommended. Follow-up in 2 months (5) Hyperlipidemia: Code(s): E78.5 - Hyperlipidemia, unspecified Category: Medical Plan: Continue statin Orders: Orders CA stress test Today I20.89 - Other forms of angina pectoris NM cardiolite stress test Today I20.89 - Other forms of angina pectoris Medications: Discontinued pantoprazole take one tablet half an hour before breakfast Discontinued Reason: Doctor's Order 40 mg PO DAILY 90 tabs 4RF K21.9 - Gastro-esophageal reflux disease without esophagitis
[2025-04-17 11:52] VITALS: BP 106/62; PULSE 73; RESP 16; TEMP 37.3; O2SAT 97; BMI 30.1
== END 2025-04-17 13:01 | disposition home or self-care (01) ==
LOC: HO.HMCC 11:50
PROVIDERS: PCP Internal Medicine; Visit Provider Internal Medicine
DX: Z00.00 Encounter for general adult medical examination without abnormal findings (principal); I20.89 Other forms of angina pectoris; I10 Essential (primary) hypertension; F17.210 Nicotine dependence, cigarettes, uncomplicated; E78.5 Hyperlipidemia, unspecified

== ENCOUNTER → 2025-04-17 11:49 | Outpatient (BNVA) | payer OTHER, SELFPAY | PROVIDERS: PCP Internal Medicine; Visit Provider Internal Medicine | DX: Z00.00 Encounter for general adult medical examination without abnormal findings (principal); I20.89 Other forms of angina pectoris; I10 Essential (primary) hypertension; F17.210 Nicotine dependence, cigarettes, uncomplicated; E78.5 Hyperlipidemia, unspecified; Z13.31 Encounter for screening for depression; Z13.39 Encounter for screening examination for other mental health and behavioral disorders; Z79.899 Other long term (current) drug therapy | CPT/HCPCS: 96127; 99396 ==